=== PATIENT | female | born 1945 | race Caucasian/White ===

== ENCOUNTER → 2018-07-04 12:06 | Outpatient (CLI) | payer OTHER, SELFPAY ==
[2018-07-04 15:17] LABS: Cancer Antigen 125 22 U/mL (0-35)
== END ==
PROVIDERS: Family Provider Physician Assistant; PCP Physician Assistant; Visit Provider Specialist
DX: R10.2 Pelvic and perineal pain (principal)
CPT/HCPCS: 36415; 86304

== ENCOUNTER → 2019-01-08 12:00 | Outpatient (CLI) | payer OTHER, SELFPAY ==
--- NOTE | 2019-01-08 | DI.MG.S_ITS ---
BILATERAL DIGITAL SCREENING MAMMOGRAM 3D/2D WITH CAD: 01/08/2019 CLINICAL: Routine screening. Comparison is made to exams dated: 04/03/2017 mammogram, 12/14/2014 mammogram, and 09/25/2012 mammogram - [facility]. The tissue of both breasts is heterogeneously dense. This may lower the sensitivity of mammography. Current study was also evaluated with a Computer Aided Detection (CAD) system. There is an asymmetry in the left breast anterior depth central to the nipple seen on the mediolateral oblique view only. There is possible architectural distortion associated with the asymmetry. No other significant masses, calcifications, or other findings are seen in either breast. IMPRESSION: INCOMPLETE: NEEDS ADDITIONAL IMAGING EVALUATION The asymmetry in the left breast is indeterminate. Additional views with possible ultrasound are recommended. This exam was interpreted at Station ID: [id number]. NOTE: For mammograms, a report in lay terms will be sent to the patient. Approximately 15% of breast malignancies will not be visualized mammographically. In the management of a palpable breast mass, a negative mammogram must not discourage biopsy of a clinically suspicious lesion. Electronically Signed By: Gilberto Padilla M.D. ecl/:01/09/2019 12:54:03 copy to: KENDALL CHANG letter sent: Additional Imaging Needed ACR BI-RADS Category 0: Incomplete 3340F
== END ==
PROVIDERS: PCP Internal Medicine; Visit Provider Internal Medicine
DX: Z12.31 Encounter for screening mammogram for malignant neoplasm of breast (principal); M81.0 Age-related osteoporosis without current pathological fracture; Z78.0 Asymptomatic menopausal state; E07.9 Disorder of thyroid, unspecified; Z82.62 Family history of osteoporosis; Z87.891 Personal history of nicotine dependence
CPT/HCPCS: 77063; 77067; 77080

== ENCOUNTER → 2019-02-16 10:11 | Outpatient (CLI) | payer OTHER, SELFPAY ==
--- NOTE | 2019-02-16 | DI.MG.S_ITS ---
UNILATERAL LEFT DIGITAL DIAGNOSTIC MAMMOGRAM 3D/2D WITH ADDITIONAL VIEWS: 02/16/2019 CLINICAL: Additional evaluation requested from prior study. Comparison is made to exams dated: 01/08/2019 mammogram, 04/03/2017 mammogram, and 12/14/2014 mammogram - [facility]. The tissue of left breast is heterogeneously dense. This may lower the sensitivity of mammography. The benign asymmetry in the left breast anterior depth central to the nipple seen on the mediolateral oblique view only is no longer seen. This is consistent with summation artifact. No other significant masses or calcifications are seen in the breast. IMPRESSION: The previously described asymmetry disperses with additional views and is consistent with summation artifact. There is no mammographic evidence of malignancy. A 1 year screening mammogram is recommended. This exam was interpreted at Station ID: [id number]. NOTE: For mammograms, a report in lay terms will be sent to the patient. Approximately 15% of breast malignancies will not be visualized mammographically. In the management of a palpable breast mass, a negative mammogram must not discourage biopsy of a clinically suspicious lesion. Electronically Signed By: Yan Barlow M.D. at/:02/16/2019 10:42:01 copy to: KENDALL CHANG letter sent: Normal Exam ACR BI-RADS Category 2: Benign Finding(s) 3342F
== END ==
PROVIDERS: PCP Internal Medicine; Visit Provider Internal Medicine
DX: R92.8 Other abnormal and inconclusive findings on diagnostic imaging of breast (principal)
CPT/HCPCS: 77065; G0279

== ENCOUNTER → 2019-02-24 13:22 | Outpatient (CLI) | payer OTHER, SELFPAY ==
[2019-02-24 14:14] LABS: BUN Creatinine Ratio 23.3 (6-22); Blood Urea Nitrogen 14 mg/dL (7-17); Estimated Glomerular Filt Rate > 60.0 mL/min (>60)
== END ==
PROVIDERS: PCP Internal Medicine; Visit Provider Internal Medicine
DX: M81.0 Age-related osteoporosis without current pathological fracture (principal)
CPT/HCPCS: 36415; 82565; 84520

== ENCOUNTER → 2019-05-08 07:04 | Outpatient (CLI) | payer OTHER, SELFPAY ==
--- NOTE | 2019-05-08 | DI.US.S_ITS ---
PROCEDURE: US RENAL COMPLETE INDICATIONS: FREQUENT UTI TECHNIQUE: Real-time scanning was performed of the kidneys and bladder, with image documentation. COMPARISON: [facility], US, RENAL COMPLETE, 08/17/2010, 10:38. FINDINGS: Kidneys: Kidneys are normal in size. Right kidney measures 9.3 cm long; left kidney measures 9.8 cm long. Right renal cortical thickness is 1.2 cm; left renal cortical thickness is 1.5 cm. Renal cortical echotexture is normal. No hydronephrosis or nephrolithiasis. No suspicious solid mass lesions. Bladder: Pre-void bladder volume is 278 mL. Post-void residual is 122 mL. Pre-void images demonstrate no intraluminal masses or stones. On pre-void images, bilateral ureteral jets are noted with color Doppler interrogation. (Of note, ureteral jets may not be detectable in up to 25% of cases due to insufficient differences in specific gravity between ureteral and bladder urine). Miscellaneous: No free pelvic fluid. IMPRESSION: Normal kidneys. Dictated by: Magdaleno GARCIA Interpreted: Greg Hernández MD on 05/08/2019 at 8:36 Approved by: Greg Hernández M.D. on 05/08/2019 at 16:50
== END ==
PROVIDERS: PCP Internal Medicine; Visit Provider Urology
DX: N39.0 Urinary tract infection, site not specified (principal)
CPT/HCPCS: 76770

== ENCOUNTER → 2019-07-31 14:27 | Outpatient (CLI) | payer OTHER, SELFPAY ==
--- NOTE | 2019-07-31 | DI.RAD.S_ITS ---
PROCEDURE: XR HIP W PEL IF DONE LT 2V INDICATIONS: left hip pain TECHNIQUE: AP pelvis with lateral view(s) of the left hip(s). COMPARISON: [facility], , PELVIS 1 OR 2 VIEWS, 03/16/2011, 11:20. FINDINGS: Bones: No fractures or dislocations. Pelvic ring appears intact. No suspicious bony lesions. Mild symmetric hip and sacroiliac joint degeneration bilaterally. Soft tissues: The visualized bowel gas pattern is normal. No suspicious soft tissue calcifications. 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 Dictated by: Woody Ochoa M.D. on 07/31/2019 at 22:01 Approved by: Woody Ochoa M.D. on 07/31/2019 at 22:02
== END ==
PROVIDERS: PCP Internal Medicine; Referring Provider Internal Medicine; Visit Provider Internal Medicine
DX: M25.552 Pain in left hip (principal); M16.0 Bilateral primary osteoarthritis of hip; M47.898 Other spondylosis, sacral and sacrococcygeal region
CPT/HCPCS: 73502

== ENCOUNTER 2019-08-08 11:54 | Emergency (ER) | payer OTHER, SELFPAY ==
[2019-08-08 12:00] VITALS: BP 146/73; PULSE 77; RESP 16; TEMP 37; O2SAT 99; BMI 25.0
--- NOTE | 2019-08-08 12:09 | DI.RAD.S_ITS ---
PROCEDURE: XR FOOT LT MIN 3V INDICATIONS: pain after stepping off curb TECHNIQUE: 3 views of the foot were acquired. COMPARISON: [facility], , FOOT 3V RIGHT, 01/23/2010, 12:52. FINDINGS: Bones: There is malalignment of the 1st tarsometatarsal joint with widening of the interval between the medial cuneiform and base of the 2nd metatarsal. No discrete fracture is visualized. There is moderate to severe degeneration at the 1st metatarsophalangeal joint. No suspicious bony lesions. Soft tissues: No tibiotalar joint effusion. Achilles tendon appears intact. IMPRESSION: 1. Malalignment at the 1st tarsometatarsal joint as described suggestive of a Lisfranc ligament injury. 2. Moderate to severe degeneration of the 1st metatarsophalangeal joint. Dictated by: Walter Hawkins M.D. on 08/08/2019 at 11:58 Approved by: Walter Hawkins M.D. on 08/08/2019 at 12:09
[2019-08-08] MEDS: LIDOCAINE PATCH 1 EACH ADH..PATCH TOP (12:16)
--- NOTE | 2019-08-08 12:26 | ED.BACK ---
HPI - Back Pain/Injury <Claudia Avelar, CUSTOMER SUPPORT REPRESENTATIVE-BC - Last Filed: 08/08/19 14:24> General Chief Complaint: Back Pain/Injury Stated Complaint: sciatica [id number], foot pain, suspected fracture Time Seen by Provider: 08/08/19 11:57 Source: patient and family Mode of arrival: Ambulatory Limitations: no limitations History of Present Illness HPI Narrative: The patient is a 74-year-old female former smoker with history of sciatica who presents for chief complaint of sciatica for a week as well as foot pain. She presents with her . She states that she has seen her primary care provider twice in the past week, once for sciatica and once for UTI. She has been started on a steroid taper, states that her sciatica is not improving and is in fact worsening. She states on Saturday she messaged her PCP PE, Dr. Love and he replied that he would make a referral for her. She wonders if her sciatica is worsening as she remembers twisting her foot and has foot pain on the top of her foot. She states that she twisted her foot falling off a curb, is not sure exactly when but states that it was at least 6 weeks ago. She wonders if this is changing her gait, sitting offer sciatic. She denies any incontinence of bowel, incontinence of bladder saddle anesthesia. She has tried Tylenol at home. Patient initially states that she does not taken anything else for pain other than the prednisone, but chart review illustrate that she takes meloxicam, gabapentin, tramadol. Related Data Home Medications Medication Instructions Recorded Confirmed atorvastatin 10 mg tablet 10 mg PO DAILY 07/04/18 07/04/18 gabapentin 300 mg capsule 300 mg PO DAILY 07/04/18 07/04/18 levothyroxine 75 mcg capsule 75 mcg PO DAILY 07/04/18 07/04/18 meloxicam submicronized 10 mg 50 mg PO DAILY cap 07/04/18 07/04/18 capsule tramadol 100 mg capsule 100 mg PO DAILY 07/04/18 07/04/18 24h,extended release(25-75) zolpidem 5 mg tablet 5 mg PO BEDTIME PRN 07/04/18 07/04/18 Previous Rx's Medication Instructions Recorded gabapentin 100 mg PO DAILY #10 cap 08/08/19 lidocaine 1 patch TOP DAILY PRN #15 each 08/08/19 prednisone 40 mg PO DAILY 5 Days #10 tab 08/08/19 Allergies Allergy/AdvReac Type Severity Reaction Status Date / Time codeine [CODEINE] Allergy Unknown Unverified 07/04/18 11:38 Penicillins [PENICILLINS] Allergy Unknown Unverified 07/04/18 11:38 Review of Systems <KENDRA Deshpande - Last Filed: 08/08/19 14:24> Review of Systems Narrative: GENERAL: Denies chills, fatigue, malaise, fever, sweats. HEENT: Denies sinus pain, ear pain, sore throat, difficulty swallowing, dizziness. RESPIRATORY: Denies dyspnea, cough, wheezing, hemoptysis, sputum. CARDIOVASCULAR: Denies chest pain, palpitations, orthopnea, edema, GASTROINTESTINAL: Denies nausea, vomiting, abdominal pain, diarrhea, constipation, melena. : Denies dysuria, frequency, incontinence, hematuria, urinary retention. MUSCULOSKELETAL: See HPI SKIN: Denies rash, skin lesions, or other NEUROLOGIC: See HPI PSYCHIATRIC: No concerning psychosocial issues. 12 point review of systems is negative except for those stated above Patient History <KENDRA Deshpande - Last Filed: 08/08/19 14:24> Social History Smoking Status: Former smoker Smoking Status: Former smoker Substance Use Type: does not use Exam <KENDRA Deshpande - Last Filed: 08/08/19 14:24> Narrative Exam Narrative: GENERAL: This is a well-nourished, well-developed patient, in no acute distress HEAD: Atraumatic. Normocephalic. No temporal or scalp tenderness. EYES: Pupils equal round and reactive. Extraocular motions intact. No scleral icterus. No injection or drainage. ENT: Nose without bleeding, purulent drainage or septal hematoma. Throat without erythema, tonsillar hypertrophy or exudate. Uvula midline. Airway patent. NECK: Trachea midline. No JVD or lymphadenopathy. Supple, nontender, no meningeal signs. CARDIOVASCULAR: Regular rate and rhythm RESPIRATORY: No cough. No increased respiratory effort. No accessory muscle use. EXTREMITIES: General pain to palpation over navicular left foot. Capillary refill less than 2 seconds all toes. Positive pedal pulses left foot. BACK: Nontender without deformity or crepitance. No flank tenderness. Pain to palpation right gluteus area. Stable gait. No gross cranial nerve deficit. NEURO: AOx3. SKIN: No rash or erythema on visible skin Initial Vital Signs Initial Vital Signs: Vital Signs Temperature 98.6 F 08/08/19 12:00 Pulse Rate 77 08/08/19 12:00 Respiratory Rate 16 08/08/19 12:00 Blood Pressure 146/73 H 08/08/19 12:00 Pulse Oximetry 99 08/08/19 12:00 <Amanuel iHnes DO - Last Filed: 08/08/19 18:54> Initial Vital Signs Initial Vital Signs: Vital Signs Temperature 98.6 F 08/08/19 12:00 Pulse Rate 77 08/08/19 12:00 Respiratory Rate 16 08/08/19 12:00 Blood Pressure 146/73 H 08/08/19 12:00 Pulse Oximetry 99 08/08/19 12:00 Procedures <KENDRA Deshpande - Last Filed: 08/08/19 14:24> Orthopedic Splinting/Casting Injury #1: Side: left Lower Extremity Injury Location: foot Lower Extremity Immobilizer: post-op shoe Post splinting neuro exam: intact Post splinting vascular exam: intact Placed by: Nursing Scores <KENDRA Deshpande - Last Filed: 08/08/19 14:24> GCS Mesfin coma scale eye opening: Spontaneous Mesfin coma scale verbal response: Orientated Mesfin coma scale motor response: Obey commands Mesfin coma scale total score: 15 Course <KENDAR Deshpande - Last Filed: 08/08/19 14:24> Orders Ordered: ED Orders 08/08/19 12:09 XR foot LT min 3V Stat Discontinued Medications Lidocaine (Lidoderm) 1 each TOP NOW ONE Stop: 08/08/19 12:11 Last Admin: 08/08/19 12:16 Dose: 1 each Documented by: JOSE ROBERTO Vital Signs Vital signs: Vital Signs - 8 hr 08/08/19 12:00 08/08/19 14:29 Temperature 98.6 F Pulse Rate 77 66 Respiratory Rate 16 16 Blood Pressure 146/73 H Pulse Oximetry 99 98 <Amanuel Hines DO - Last Filed: 02/29/20 18:54> Orders Ordered: ED Orders 08/08/19 12:09 XR foot LT min 3V Stat Discontinued Medications Lidocaine (Lidoderm) 1 each TOP NOW ONE Stop: 08/08/19 12:11 Last Admin: 08/08/19 12:16 Dose: 1 each Documented by: JOSE ROBERTO Vital Signs Vital signs: Vital Signs - 8 hr 08/08/19 12:00 08/08/19 14:29 Temperature 98.6 F Pulse Rate 77 66 Respiratory Rate 16 16 Blood Pressure 146/73 H Pulse Oximetry 99 98 MDM - Back Pain/Injury <KENDRA Deshpande - Last Filed: 08/08/19 14:24> Imaging Data Extremity x-ray #1: Radiologist's Impression: [address] [address] XRay Report Signed Patient: Chey Bradford ZMR#: [id number] : 5Acct:[id number] Age/Sex: 74 / FDate of Service: 08/08/19 Loc: ED Accession Number: [id number] Procedure: XR foot LT min 3V Ordering Provider: Claudia Avelar PROCEDURE: XR FOOT LT MIN 3V INDICATIONS: pain after stepping off curb TECHNIQUE: 3 views of the foot were acquired. COMPARISON: [facility], , FOOT 3V RIGHT, 01/23/2010, 12:52. FINDINGS: Bones: There is malalignment of the 1st tarsometatarsal joint with widening of the interval between the medial cuneiform and base of the 2nd metatarsal. No discrete fracture is visualized. There is moderate to severe degeneration at the 1st metatarsophalangeal joint. No suspicious bony lesions. Soft tissues: No tibiotalar joint effusion. Achilles tendon appears intact. IMPRESSION: 1. Malalignment at the 1st tarsometatarsal joint as described suggestive of a Lisfranc ligament injury. 2. Moderate to severe degeneration of the 1st metatarsophalangeal joint. Dictated by: Walter Hawkins M.D. on 08/08/2019 at 11:58 Approved by: Walter Hawkins M.D. on 08/08/2019 at 12:09 [facility] Narrative Medical decision making narrative: The patient is a 74-year-old female who presents with a chief complaint of foot pain and worsening sciatica. Foot x-ray shows concern of a Lisfranc ligament injury. She was placed in a postoperative shoe as per Dr. Waldrop recommendations. She was neurovascularly intact throughout her stay in the emergency department. Alteration in gait due to her foot injury may have exacerbated her sciatica. I discussed increasing her gabapentin dosing, adding 100 mg in the morning to her nightly dose of 300. Also a steroid burst and lidocaine patches. Discussed at length the importance of following up with primary care provider as well as come back to the emergency department for any acute concerns. She remains without red flag symptoms of incontinence of bowel, incontinence of bladder saddle anesthesia. I discussed that these are strict return precautions the emergency department. She is placed in a postoperative shoe. Discussed at length the importance of following up for primary care provider and also gave contact information to Orthopedics. Patient has been of no questions or concerns upon discharge and state understanding of return precautions as well as follow-up care. Discharge Plan Departure Patient Disposition: Home Clinical Impression: Acute pain of left foot Chronic low back pain with sciatica Qualifiers: Back pain laterality: right Sciatica laterality: sciatica of right side Qualified Code(s): M54.41 - Lumbago with sciatica, right side Discharge Date/Time: 08/08/19 14:30 Instructions: DI for Sciatica, DI for Foot Pain Activity Restrictions/Additional Instructions: As I discussed, your x-ray shows no acute fracture. However it is suspicious of a Lisfranc ligament injury as well as some arthritis.. It is important that you follow up with primary care provider. I have also given you contact information to [facility]. Please use rest ice compression elevation. Regarding your sciatica, I sent 2 prescriptions to [facility]. One is a steroid burst. The other is a 2nd dose of gabapentin. Please take 100 mg in the morning in addition to your nightly dose. Please follow-up with primary care provider next few days. Please come back to emergency department for any acute concerns such as incontinence bowel, incontinence of bladder or numbness in her groin Prescriptions: New gabapentin 100 mg capsule 100 mg PO DAILY Qty: 10 RF: 0 prednisone 20 mg tablet 40 mg PO DAILY 5 Days Qty: 10 RF: 0 lidocaine 5 % adhesive patch,medicated 1 patch TOP DAILY PRN (Reason: pain) Qty: 15 RF: 0 No Action gabapentin 300 mg capsule 300 mg PO DAILY RF: 0 zolpidem [Ambien] 5 mg tablet 5 mg PO BEDTIME PRNRF: 0 atorvastatin 10 mg tablet 10 mg PO DAILY RF: 0 meloxicam submicronized 10 mg capsule 50 mg PO DAILY RF: 0 levothyroxine 75 mcg capsule 75 mcg PO DAILY RF: 0 tramadol 100 mg capsule,ER biphase 24 hr 25-75 100 mg PO DAILY RF: 0 Referrals: Og Love MD [Primary Care Provider] -
[2019-08-08 14:29] VITALS: PULSE 66; RESP 16; O2SAT 98
== END 2019-08-08 14:30 | disposition home or self-care (01) ==
PROVIDERS: Emergency Provider Nurse Practitioner Family; PCP Internal Medicine
DX: M79.672 Pain in left foot (principal); M54.41 Lumbago with sciatica, right side
CPT/HCPCS: 73630; 99283

== ENCOUNTER → 2019-12-07 09:06 | Outpatient (CLI) | payer OTHER, SELFPAY ==
[2019-12-07 11:41] LABS: Aspartate Aminotransferase 21 IU/L (14-36); BUN Creatinine Ratio 18.5 (6-22); Blood Urea Nitrogen 12 mg/dL (7-17); Calcium 9.7 mg/dL (8.4-10.2); Carbon Dioxide 29 mmol/L (22-32); Chloride 102 mmol/L (98-107); Cholesterol 173 mg/dL (140-199); Estimated Glomerular Filt Rate > 60.0 mL/min (>60); Glucose 87 mg/dL (80-110); HDL Cholesterol 62 mg/dL (40-60); HEMOLYSIS < 15 (0-50); LDL Cholesterol Calculated 100 mg/dL (<100); Potassium 4.4 mmol/L (3.4-5.1); Sodium 138 mmol/L (137-145); Triglycerides 57 mg/dL (35-150)
[2019-12-07 12:08] LABS: TSH w/ Reflex to FT4 0.73 uIU/mL (0.47-4.68)
== END ==
PROVIDERS: PCP Internal Medicine; Referring Provider Internal Medicine; Visit Provider Internal Medicine
DX: M81.0 Age-related osteoporosis without current pathological fracture (principal)
CPT/HCPCS: 36415; 80048; 80061; 84443; 84450

== ENCOUNTER → 2020-02-01 15:47 | Outpatient (CLI) | payer OTHER, SELFPAY ==
[2020-02-01 16:46] LABS: Appearance Urine UA SL CLOUDY; Bilirubin Urine UA NEGATIVE (NEGATIVE); Color Urine UA YELLOW; Glucose Urine UA NEGATIVE (Negative); Ketones Urine UA NEGATIVE (NEGATIVE); Leukocyte Esterase Urine UA 1+ (NEGATIVE); Nitrite Urine UA POSITIVE (Negative); Occult Blood Urine UA TRACE-INTACT (Negative); Protein Urine UA NEGATIVE (Negative); Specific Gravity Urine UA <=1.005 (1.000-1.035); Urobilinogen Urine UA 0.2 E.U./dL (0.2)
[2020-02-01 17:13] LABS: BUN Creatinine Ratio 26.2 (6-22); Blood Urea Nitrogen 16 mg/dL (7-17); Calcium 9.1 mg/dL (8.4-10.2); Carbon Dioxide 28 mmol/L (22-32); Chloride 98 mmol/L (98-107); Estimated Glomerular Filt Rate > 60.0 mL/min (>60); Glucose 92 mg/dL (80-110); HEMOLYSIS < 15 (0-50); Potassium 4.5 mmol/L (3.4-5.1); Sodium 132 mmol/L (137-145)
[2020-02-01 17:14] LABS: Bacteria Urine Many (>30); Culture Indicated Urine Specimen Cultured; RBC Urine 0-1/HPF (0-5/HPF); Squamous Epithelial Cell Urine 1-5 /HPF (0-5/HPF); WBC Urine 10-30/HPF (0-5/HPF)
== END ==
PROVIDERS: PCP Internal Medicine; Referring Provider Internal Medicine; Visit Provider Internal Medicine
DX: R39.9 Unspecified symptoms and signs involving the genitourinary system (principal); M81.0 Age-related osteoporosis without current pathological fracture
CPT/HCPCS: 36415; 80048; 81001; 87077; 87086; 87186

== ENCOUNTER → 2021-04-17 10:43 | Outpatient (CLI) | payer OTHER, SELFPAY ==
--- NOTE | 2021-04-17 10:44 | DI.CT.S_ITS ---
PROCEDURE: CT LUMBAR SPINE WO CON INDICATIONS: Low back pain, unspecified TECHNIQUE: Noncontrast 3 mm thick sections acquired from the T12 level to the sacrum. Sagittal and coronal reformats were constructed. For radiation dose reduction, the following was used: automated exposure control. COMPARISON: [facility], MR, L-SPINE WITHOUT CONTRAST, 09/27/2014, 7:14. [facility], MR, L-SPINE WITHOUT CONTRAST, 07/24/2012, 7:18. [facility], CR, XR LUMBAR SPINE WITH FLEXION EXTENSION 5 VIEWS, 12/03/2019, 10:46. [facility], MR, MR LUMBAR SPINE WITHOUT CONTRAST, 08/22/2019, 10:50. [facility], CT, ABDOMEN/PELVIS WITH CONTRAST, 03/25/2017, 13:02. FINDINGS: Image quality: There is artifact associated with the metallic hardware. Bones: There is normal bony alignment. No acute vertebral body compression fractures. No suspicious lytic or blastic bony lesions. No pars defects. Postoperative changes are seen, with bilateral pedicle screws at the L3 through L5 levels. The screws appear well placed. Disc spacers are seen at L3-L4 and L4-L5. Vertical fixation rods are seen. No findings of hardware failure or hardware loosening are seen. T12-L1: Normal. L1-L2: Normal. L2-L3: The disc height is well preserved. Mild generalized disc bulge is seen. These degenerative changes appear slightly progressed compared to the prior MRI. L3-L4: Moderate generalized disc bulge is seen. Moderate bilateral neural foraminal narrowing is seen. Moderate central canal narrowing is seen. The degrees of narrowing are overall improved compared to the preoperative MRI. L4-L5: Moderate generalized disc bulge is seen. Moderate facet joint hypertrophy is seen. There is mild left-sided and moderate right-sided neural foraminal narrowing seen. No significant central canal narrowing is seen. This level is improved compared to the preoperative MRI. L5-S1: The disc height is well preserved. Mild facet joint hypertrophy is seen. No significant neural foraminal or central canal narrowing can be seen. Soft tissues: No retroperitoneal masses or hematomas. Visualized aorta is normal in caliber. Atherosclerotic calcification is noted. IMPRESSION: L3 through L5 postoperative hardware, without complication seen. At L3-L4 and L4-L5, the degrees of narrowing are improved compared to the preoperative MRI. Slightly progressed degenerative change noted at L2-L3. Dictated by: Jair Forde M.D. on 04/19/2021 at 15:03 Approved by: Jair Forde M.D. on 04/19/2021 at 15:08
== END ==
PROVIDERS: PCP Internal Medicine; Referring Provider Internal Medicine; Visit Provider Internal Medicine
DX: M54.50 Low back pain, unspecified (principal); M48.061 Spinal stenosis, lumbar region without neurogenic claudication; Z98.1 Arthrodesis status
CPT/HCPCS: 72131

== ENCOUNTER → 2021-07-13 11:30 | Outpatient (CLI) | payer OTHER, SELFPAY ==
--- NOTE | 2021-07-13 | DI.CT.S_ITS ---
PROCEDURE: CT ABDOMEN PELVIS W CON INDICATIONS: LEFT LOWER QUADRANT ABDOMINAL PAIN TECHNIQUE: After the administration of oral and IV contrast, axial sections were acquired from the lung bases to the pubic symphysis. Coronal and sagittal reformats were performed. For radiation dose reduction, the following was used: automated exposure control, adjustment of mA and/or kV according to patient size. COMPARISON: [facility], CT, CT LUMBAR SPINE WO CON, 04/17/2021, 12:00. [facility], CT, ABDOMEN/PELVIS WITH CONTRAST, 03/25/2017, 13:02. FINDINGS: Image quality: Excellent. Lung bases: Unremarkable. Heart: No significant findings. ABDOMEN: Liver: Multiple benign liver cysts. A larger cyst at the inferior right lobe of the liver measures 8.7 cm. Gallbladder: Decompressed. Biliary ducts: Unremarkable. Pancreas: Unremarkable. Spleen: Unremarkable. Adrenal Glands: Unremarkable. Kidneys and Ureters: No hydronephrosis. Stomach and Bowel: Probably a few colonic diverticuli. No diverticulitis. There is prominent stool in the colon. The appendix is not identified. No small bowel obstruction. Peritoneum: No abnormal intraperitoneal fluid. No free air. Ventral Wall: No hernia. Abdominal Nodes: No retroperitoneal or mesenteric adenopathy by size criteria. Vessels: Aorta and inferior vena cava are normal in size. PELVIS: Pelvic Organs: Uterus is unremarkable. Bladder: No bladder stones. Pelvic Nodes: No enlarged lymph nodes. Miscellaneous: No inguinal hernias are seen. Bones: L3-L5 pedicle screw fixation with intervertebral body spacers is unchanged in appearance. No compression fracture. IMPRESSION: 1. No acute inflammatory process is identified. No free fluid. No small bowel obstruction. 2. There is prominent stool in the colon which raises the possibility of constipation. 3. No hydronephrosis. Dictated by: Reilly Little M.D. on 07/13/2021 at 14:14 Approved by: Reilly Little M.D. on 07/13/2021 at 14:21
[2021-07-13 12:00] LABS: Estimated Glomerular Filt Rate > 60.0 mL/min (>60)
== END ==
PROVIDERS: PCP Internal Medicine; Referring Provider Student in an Organized Health Care Education/Training Program; Visit Provider Student in an Organized Health Care Education/Training Program
DX: R10.32 Left lower quadrant pain (principal)
CPT/HCPCS: 36415; 74177; 82565; Q9967

== ENCOUNTER → 2022-01-24 12:06 | Outpatient (CLI) | payer OTHER, SELFPAY | PROVIDERS: PCP Student in an Organized Health Care Education/Training Program; Referring Provider Student in an Organized Health Care Education/Training Program; Visit Provider Student in an Organized Health Care Education/Training Program | DX: Z13.820 Encounter for screening for osteoporosis (principal); Z78.0 Asymptomatic menopausal state; M85.89 Other specified disorders of bone density and structure, multiple sites; Z92.23 Personal history of estrogen therapy | CPT/HCPCS: 77080 ==

== ENCOUNTER → 2022-08-29 11:15 | Outpatient (CLI) | payer MEDICARE, SELFPAY ==
--- NOTE | 2022-08-29 11:16 | DI.RAD.S_ITS ---
PROCEDURE: XR RIBS LT MIN 3V W CXR1V INDICATIONS: Rib pain TECHNIQUE: To views of the left ribs were acquired, along with a single view chest. COMPARISON: None. FINDINGS: Surgical changes and devices: None. Bones and chest wall: No fractures or dislocations. No suspicious bony lesions. Overlying soft tissues appear unremarkable. Lungs and pleura: No pleural effusions or pneumothorax. Lungs appear clear. Mediastinum: Mediastinal contours appear normal. Heart size is normal. IMPRESSION: No definite displaced left rib fracture. No acute cardiopulmonary pathology. Dictated by: Eliceo Clarke M.D. on 08/29/2022 at 11:38 Approved by: Eliceo Clarke M.D. on 08/29/2022 at 11:45
== END ==
PROVIDERS: PCP Student in an Organized Health Care Education/Training Program; Referring Provider Nurse Practitioner Family; Visit Provider Nurse Practitioner Family
DX: R07.81 Pleurodynia (principal)
CPT/HCPCS: 71101

== ENCOUNTER → 2022-10-31 08:44 | Outpatient (CLI) | payer MEDICARE, SELFPAY ==
--- NOTE | 2022-10-31 | DI.MRI.S_ITS ---
PROCEDURE: MR LUMBAR SPINE WO CON INDICATIONS: Arthrodesis status TECHNIQUE: Noncontrast sagittal T1 spin echo and T2 fast echo, sagittal STIR, and T2 fast spin echo through the lumbar spine. In cases with scoliosis, additional coronal T2 fast spin echo may be performed. COMPARISON: [facility], CT, CT LUMBAR SPINE WO CON, 04/17/2021, 12:00. [facility], CR, XR LUMBAR SPINE WITH FLEXION EXTENSION 5 VIEWS, 10/16/2022, 14:13. [facility], MR, MR LUMBAR SPINE WITHOUT CONTRAST, 08/22/2019, 10:50. [facility], MR, L-SPINE WITHOUT CONTRAST, 09/27/2014, 7:14. FINDINGS: Image quality: Excellent. Alignment and Curvature: Posterior lateral danita and pedicle screw fixation and interbody disc spacers at L3-L4 through L4-L5. Trace anterolisthesis of L3 on L4. Bone Marrow: Marrow is of normal overall signal. No acute vertebral body compression fractures. Spinal Cord: Conus medullaris terminates at the L1-L2 level. Visualized cord demonstrates normal signal and size. Paraspinous Soft Tissues: No paravertebral masses. T12-L1: Normal appearance. L1-L2: Normal appearance. L2-L3: Facet hypertrophy. Minimal disc bulge. No canal stenosis or foraminal stenosis. L3-L4: Posterior lateral danita and pedicle screw fixation and partial left hemilaminectomy and left facetectomy. Mild canal stenosis. No significant foraminal stenosis. L4-L5: Partial posterior decompression posterior lateral danita and pedicle screw fixation. No canal stenosis or foraminal stenosis. L5-S1: Mild disc bulge. Mild facet hypertrophy. No canal stenosis or foraminal stenosis. IMPRESSION: 1. Remote posterior lateral danita and pedicle screw fixation from L3 through L5. Remote decompression. 2. Above and below the surgical levels, there is no canal stenosis or foraminal stenosis. 3. Mild canal stenosis at L3-L4. Dictated by: Alex Kim M.D. on 10/31/2022 at 13:44 Approved by: Alex Kim M.D. on 10/31/2022 at 13:52
== END ==
PROVIDERS: PCP Student in an Organized Health Care Education/Training Program; Referring Provider Orthopaedic Surgery; Visit Provider Orthopaedic Surgery
DX: M54.50 Low back pain, unspecified (principal); M48.061 Spinal stenosis, lumbar region without neurogenic claudication; Z98.1 Arthrodesis status
CPT/HCPCS: 72148

== ENCOUNTER → 2023-04-17 13:11 | Outpatient (CLI) | payer MEDICARE, SELFPAY ==
--- NOTE | 2023-04-17 | DI.MG.S_ITS ---
BILATERAL DIGITAL SCREENING MAMMOGRAM 3D/2D WITH CAD: 04/17/2023 CLINICAL: Routine screening. Comparison is made to exam dated: 01/08/2019 mammogram - [facility]. Both breasts are heterogeneously dense, which may obscure small masses (category c / 51-75% glandular tissue). Current study was also evaluated with a Computer Aided Detection (CAD) system. No significant masses, calcifications, or other findings are seen in either breast. There has been no significant interval change. IMPRESSION: NEGATIVE There is no mammographic evidence of malignancy. A 1 year screening mammogram is recommended. Based on the Tyrer Cuzick model (a risk assessment model) the patient's lifetime risk is 5.3% and her 10 year risk is 0.0%. According to the ACR, ACS, and NCCN guidelines, an annual breast MRI exam along with mammogram is recommended if the patient's lifetime risk is 20% or greater. This exam was interpreted at Station ID: [id number]. NOTE: For mammograms, a report in lay terms will be sent to the patient. Approximately 15% of breast malignancies will not be visualized mammographically. In the management of a palpable breast mass, a negative mammogram must not discourage biopsy of a clinically suspicious lesion. Electronically Signed By: Reilly borrego/constanza:04/17/2023 16:26:18 copy to: KENDALL CHANG letter sent: Normal Exam ACR BI-RADS Category 1: Negative 3341F
== END ==
PROVIDERS: PCP Student in an Organized Health Care Education/Training Program; Referring Provider Student in an Organized Health Care Education/Training Program; Visit Provider Student in an Organized Health Care Education/Training Program
DX: Z12.31 Encounter for screening mammogram for malignant neoplasm of breast (principal)
CPT/HCPCS: 77063; 77067

== ENCOUNTER → 2023-07-19 11:29 | Outpatient (CLI) | payer MEDICARE, SELFPAY ==
--- NOTE | 2023-07-19 11:31 | DI.CT.S_ITS ---
PROCEDURE: CT ABDOMEN LIVER PROTOCOL INDICATIONS: Liver Cyst TECHNIQUE: 4 phase scanning was performed. Non-contrast 5 mm axial sections acquired from the diaphragm to the iliac crests. Following the administration of intravenous contrast, 5 mm thick arterial-phase, portal venous-phase, and 5-minute delayed phase images were acquired through the liver. 5 mm thick coronal and sagittal reformats were performed. For radiation dose reduction, the following was used: automated exposure control, adjustment of mA and/or kV according to patient size. COMPARISON: [facility], CT, CT ABDOMEN HEPATIC/ADRENAL PROTOCOL, 01/21/2023, 8:22. FINDINGS: Image quality: Mildly suboptimal evaluation due to metallic artifact of the lower lumbar spine.. Lower chest: Unremarkable. ABDOMEN: Liver: No solid mass. Normal enhancement. Patent portal vein. Similar hepatic cystic lesions and low attenuating lesions which are too small to characterize by CT. Gallbladder: No radiopaque gallstones or wall thickening. Biliary ducts: No biliary dilation. Pancreas: No ductal dilation. Spleen: Size is within normal limits. Stable hypoattenuation along the periphery of the spleen, presumably a chronic subcapsular collection. Adrenal Glands: No adrenal nodules. Kidneys and Ureters: No hydronephrosis. No solid mass. No complex renal cystic lesion which requires follow up. Stomach and Bowel: Normal colonic caliber, without significant wall thickening. Moderate colonic stool load. Peritoneum: No abnormal intraperitoneal fluid. No free air. Ventral Wall: No hernia. Abdominal Nodes: No retroperitoneal or mesenteric adenopathy by size criteria. Vessels: Aorta and inferior vena cava are normal in size. Bones: No aggressive osseous abnormality. Surgical fusion of the lower lumbar spine. IMPRESSION: Similar hepatic cystic lesions and low attenuating lesions which are too small to characterize by CT. Dictated by: Clark Ferrer M.D. on 07/19/2023 at 15:12 Approved by: Clark Ferrer M.D. on 07/19/2023 at 15:17
[2023-07-19 11:55] LABS: Estimated Glomerular Filt Rate > 60 mL/min (>60)
== END ==
LOC: CT 11:30
PROVIDERS: Radiology Diagnostic Radiology; PCP Student in an Organized Health Care Education/Training Program; Referring Provider Student in an Organized Health Care Education/Training Program; Visit Provider Student in an Organized Health Care Education/Training Program
DX: K76.89 Other specified diseases of liver (principal)
CPT/HCPCS: 36415; 74170; 82565; Q9967

== ENCOUNTER → 2023-07-25 12:12 | Outpatient (CLI) | payer MEDICARE, SELFPAY ==
--- NOTE | 2023-07-25 12:14 | DI.MRI.S_ITS ---
SCREENING BREAST MRI OF BOTH BREASTS: 07/25/2023 CLINICAL: Screening MRI. Comparison is made to exams dated: 04/17/2023 mammogram, 02/16/2019 mammogram, 04/03/2017 mammogram, and 01/08/2019 mammogram - [facility]. PROCEDURE: MR BREAST BI WO/W CON INDICATIONS: screening for malignant neoplasm of breast TECHNIQUE: The patient was placed prone in a dedicated breast imaging coil. Precontrast axial STIR and 3D FLASH without fat saturation sequences were obtained. Both before and after bolus injection of contrast, sequential 1-minute axial 3D FLASH with fat saturation sequences for 3 time points, with subtraction images and maximum intensity projections (MIP's) generated. Delayed sagittal FLASH images with fat saturation were also obtained. Computer-aided detection, including computer algorithm analysis of MRI image data for lesion detection and characterization, pharmacokinetic FINDINGS: Image quality: Xddk-zb-rzkwwtut motion artifact. The breasts are heterogeneously dense. There is mild background parenchymal enhancement. Right breast: No suspicious mass, focus, or non mass enhancement. Left breast: No suspicious mass, focus, or non mass enhancement. Miscellaneous: Partially visualized suspected liver cysts are present. Suspected dependent atelectasis. Borderline cardiomegaly. No significant findings in the anterior mediastinum. These are only partially visualized. No pathologic lymphadenopathy by size criteria or morphologic characteristics. IMPRESSION: NEGATIVE No suspicious findings in either breast. Recommend continued annual mammographic and supplemental MRI screening. BIRADS 1 COMMENT: The imaging literature indicates that a negative contrast breast MRI examination has a high sensitivity and a moderate specificity for detecting and excluding invasive carcinomas to a detection threshold of 3-5 mm; nonetheless, appropriate clinical and mammographic follow-up are recommended. MRI is not sensitive for detecting DCIS (ductal carcinoma in situ) and may not detect large invasive neoplasms that show only minimal enhancement such as mucinous carcinoma. If there are suspicious calcifications or clinically worrisome palpable masses, then biopsy should still be considered. Invasive neoplasms can be hidden by co-existent and benign enhancement caused by mastitis, hormone therapy effects, radiation therapy, , and recent biopsy or surgery. False positive examinations can occur in a number of circumstances, including breasts that have recently been subject to invasive procedures and those that contain atypical ductal hyperplasia, hormonally stimulated glandular tissue, fat necrosis, or radial scars. This exam was interpreted at Station ID: [id number]. Electronically Signed By: Ochoa juan/:07/25/2023 13:27:55 copy to: KENDALL CHANG letter sent: Normal Exam ACR BI-RADS Category 1: Negative [id number]
== END ==
PROVIDERS: PCP Student in an Organized Health Care Education/Training Program; Referring Provider Student in an Organized Health Care Education/Training Program; Visit Provider Student in an Organized Health Care Education/Training Program
DX: Z12.39 Encounter for other screening for malignant neoplasm of breast (principal)
CPT/HCPCS: 77049; A9579

== ENCOUNTER 2023-09-02 17:02 | Emergency (ER) | payer MEDICARE, SELFPAY ==
[2023-09-02 17:13] VITALS: BP 198/84; PULSE 64; RESP 16; TEMP 36.3; O2SAT 99; BMI 31.2
--- NOTE | 2023-09-02 17:23 | DI.RAD.S_ITS ---
PROCEDURE: XR CHEST 1V INDICATIONS: chest pain TECHNIQUE: One view of the chest was acquired. COMPARISON: [facility], CT, CT ANGIO HEAD AND NECK, 09/02/2023, 17:47. [facility], CT, CT HEAD/BRAIN WO CON, 09/02/2023, 17:26. [facility], CR, CHEST 1 VIEW, 12/23/2014, 10:22. FINDINGS: Surgical changes and devices: None. Lungs and pleura: An incomplete inspiratory result is noted, causing a crowded appearance to the lung markings. No focal infiltrates are seen. No pneumothorax or significant pleural effusions are seen. Mediastinum: The cardiac contours are within normal limits. The aorta demonstrates calcification and tortuosity. Bones and chest wall: No suspicious bony lesions. Age-appropriate bony degenerative changes are seen. Overlying soft tissues appear unremarkable. IMPRESSION: Low lung volumes, without an acute abnormality seen by plain film. Dictated by: Jair Forde M.D. on 09/02/2023 at 17:42 Approved by: Jair Forde M.D. on 09/02/2023 at 17:43
--- NOTE | 2023-09-02 17:23 | DI.CT.S_ITS ---
PROCEDURE: CT HEAD/BRAIN WO CON INDICATIONS: headache, nausea/vomiting, dizzy TECHNIQUE: Noncontrast 4.5 mm thick angled axial sections acquired from the foramen magnum to the vertex, with coronal and sagittal reformats. For radiation dose reduction, the following was used: automated exposure control, adjustment of mA and/or kV according to patient size. COMPARISON: [facility], CT, CT ANGIO HEAD AND NECK, 09/02/2023, 17:47. [facility], CR, XR CHEST 1V, 09/02/2023, 17:23. [facility], CT, HEAD WITHOUT CONTRAST, 12/23/2014, 10:31. FINDINGS: Image quality: Diagnostic. CSF spaces: Basal cisterns are patent. No extra-axial fluid collections. The ventricles are symmetric in size and shape. Brain: No intracranial bleeds or masses. There is cerebral volume loss for age, with resultant ventricular and sulcal prominence. There are periventricular and deep white matter chronic small vessel ischemic changes. There is intracranial internal carotid artery atherosclerosis. Skull and face: Calvarium and visualized facial bones appear intact, without suspicious lesions. Sinuses: Visualized sinuses and mastoids are clear. IMPRESSION: Noncontrast head CT within normal limits for age, similar to the 2015 prior. Dictated by: Jair Forde M.D. on 09/02/2023 at 17:44 Approved by: Jair Forde M.D. on 09/02/2023 at 17:44
[2023-09-02 17:31] VITALS: PULSE 66; RESP 21; O2SAT 96
--- NOTE | 2023-09-02 17:32 | DI.CT.S_ITS ---
PROCEDURE: CT ANGIO HEAD AND NECK INDICATIONS: [place]/N/V dizzy TECHNIQUE: After the administration of intravenous contrast, 1 mm thick sections acquired from the aortic arch through the [place] of [place]. 3-dimensional ocenjuq-uwikolkzi-inhgalusou (MIP) and/or volume rendering reformats were acquired of the central intracranial vasculature and neck separately. For radiation dose reduction, the following was used: automated exposure control, adjustment of mA and/or kV according to patient size. COMPARISON: [facility], CR, XR CHEST 1V, 09/02/2023, 17:23. [facility], CT, CT HEAD/BRAIN WO CON, 09/02/2023, 17:26. FINDINGS: Image quality: There is streak artifact seen through the level of the shoulders. BRAIN: CSF spaces: Ventricles are normal in size and shape. Basal cisterns are patent. No extra-axial fluid collections. Brain: No significant abnormality of the brain can be seen. Skull and face: Calvarium and facial bones appear intact, without suspicious lesions. Orbits appear normal. Sinuses: Sinuses and mastoids are clear. HEAD CT ANGIOGRAPHY: Anterior circulation: Intracranial internal carotid arteries are normal in size and flow. The flow within the paired anterior cerebral arteries is normal and symmetric. The flow within the middle cerebral arteries is normal and symmetric. The anterior communicating artery is seen. No aneurysms are seen. Posterior circulation: Visualized portions of the vertebral arteries demonstrate normal caliber, and join to form a normal appearing basilar artery. Flow within the posterior cerebral arteries is normal and symmetric. No aneurysms are seen. NECK CT ANGIOGRAPHY: Carotid system: The great vessels demonstrate a conventional anatomy as they arise from the aortic arch. The origins of the common carotid arteries appear patent. The common carotid arteries demonstrate normal caliber and courses. The bifurcation regions are both widely patent. The internal carotid arteries demonstrate normal calibers and courses. Posterior circulation: The origins of the vertebral arteries both appear widely patent. The more superior extracranial portions of both vertebral arteries also demonstrate normal courses and calibers. The left vertebral artery is dominant to the right. Soft tissues: Visualized neck soft tissues demonstrate no suspicious abnormalities. Bones: No suspicious bony lesions. Visualized cervical spine appears normally aligned. Focal degenerative change can be seen at the C5-C6 level. IMPRESSION: No significant intracranial arterial abnormality is seen. No significant abnormality is seen within the arteries of the neck. Additional findings: Focal C5-C6 degenerative change Any quantitative measurements of stenosis were performed using NASCET criteria. Dictated by: Jair Forde M.D. on 09/02/2023 at 17:45 Approved by: Jair Forde M.D. on 09/02/2023 at 17:46
[2023-09-02 17:49] LABS: Add Manual Diff / Slide Review NO; Basophils Absolute Auto 100 /uL (0-100); Basophils Percent Auto 0.8 % (0-2); Eosinophils Absolute Auto 0 /uL (0-450); Eosinophils Percent Auto 0.2 % (2-4); Hemoglobin 13.3 g/dL (12.0-16.0); Lymphocytes Absolute Auto 1000 /uL (1100-4500); Lymphocytes Percent Auto 13.7 % (25-40); Mean Corpuscular HGB Conc 34.2 % (30-36); Mean Corpuscular Hemoglobin 31.6 PG (26-34); Mean Corpuscular Volume 92.4 fL (80-100); Monocytes Absolute Auto 300 /uL (0-900); Monocytes Percent Auto 3.5 % (3-14); Neutrophils Absolute Auto 6300 /uL (1500-7000); Neutrophils Percent Auto 81.8 % (50-75); Platelet Count 260 X10^3/uL (150-400); Red Blood Cell Count 4.21 X10^6/uL (4.0-5.2); Red Cell Distribution Width 13.1 % (11.6-14.8); White Blood Cell Count 7.6 X10^3/uL (4.5-11.0)
[2023-09-02 17:55] LABS: Prothrombin Time 11.3 SECONDS (9.4-12.5)
[2023-09-02 17:58] LABS: PTT Partial Thromboplastin Tim 30 SECONDS (25.1-36.5)
[2023-09-02 18:14] LABS: Alanine Aminotransferase 18 IU/L (<35); Albumin 4.6 g/dL (3.5-5.0); Albumin Globulin Ratio 1.4 (1.0-2.8); Alkaline Phosphatase 45 U/L (38-126); Aspartate Aminotransferase 25 IU/L (14-36); Bilirubin Total 0.9 mg/dL (0.2-1.3); Blood Urea Nitrogen 13 mg/dL (7-17); Calcium 9.2 mg/dL (8.4-10.2); Carbon Dioxide 26 mmol/L (22-32); Chloride 104 mmol/L (98-107); Creatine Kinase 94 U/L (30-135); Estimated Glomerular Filt Rate > 60 mL/min (>60); Globulin 3.2 g/dL (1.7-4.1); Glucose 133 mg/dL (80-110); HEMOLYSIS 22 (0-50); Lipase 27 U/L (23-300); Potassium 3.6 mmol/L (3.4-5.1); Sodium 135 mmol/L (137-145); Total Protein 7.8 g/dL (6.3-8.2)
[2023-09-02 18:16] VITALS: PULSE 76; RESP 22; O2SAT 94
[2023-09-02] MEDS: SODIUM CHLORIDE 0.9% 1,000 ML 1000 ML IV (18:16)
[2023-09-02] MEDS: diazePAM 10 MG/2 ML SYRINGE 2 MG IV (18:16)
[2023-09-02 18:22] VITALS: BP 189/83; PULSE 68; RESP 22; O2SAT 98
[2023-09-02 18:25] LABS: Troponin I < 0.012 ng/mL (0.01-0.034)
--- NOTE | 2023-09-02 18:28 | PC.NURSE ---
Pt ambulated well to bathroom with [employer], pt states she feels less nauseas, but that she still feels dizzy with exertion.
[2023-09-02 18:30] VITALS: BP 178/83; PULSE 66; RESP 22; O2SAT 94
[2023-09-02 18:44] LABS: Bacteria Urine Many (>30); Culture Indicated Urine Cult Not Indicated; RBC Urine 0-1/HPF (0-5/HPF); Squamous Epithelial Cell Urine 5-10 /HPF (0-5/HPF); Urine Volume 10mL (spun); WBC Urine 0-1/HPF (0-5/HPF)
--- NOTE | 2023-09-02 19:16 | ED.HA ---
HPI - Headache General Chief Complaint: Headache Stated Complaint: Dizzy/headache/N/V Time Seen by Provider: 09/02/23 17:22 Source: patient and family Mode of arrival: Wheelchair Limitations: no limitations History of Present Illness HPI Narrative: Patient is a 78-year-old female here for evaluation of dizziness, headache and nausea and vomiting. States symptoms started last evening. They woke her from sleep. She states that it is positional and her symptoms are worse when she sits up and bends over. She denies any ringing in her ears. Has had some sinus congestion. No chest pain, palpitations, shortness of breath, numbness and tingling upper and lower extremities. She reports no weakness in her upper and lower extremities. Prior to my evaluation she received fluids and meclizine. Upon my evaluation she states her symptoms are much improved. Not completely resolved but tremendously better. She has not had symptoms like this in the past. Related Data Home Medications Medication Instructions Recorded Confirmed atorvastatin 10 mg tablet 10 mg PO DAILY 07/04/18 08/29/22 gabapentin 300 mg capsule 300 mg PO DAILY 07/04/18 08/29/22 levothyroxine 75 mcg capsule 75 mcg PO DAILY 07/04/18 08/29/22 meloxicam submicronized 10 mg 50 mg PO DAILY 07/04/18 08/29/22 capsule tramadol 100 mg capsule 100 mg PO DAILY 07/04/18 08/29/22 24h,extended release(25-75) zolpidem 5 mg tablet (Ambien) 5 mg PO BEDTIME PRN 07/04/18 08/29/22 Previous Rx's Medication Instructions Recorded gabapentin 100 mg capsule 100 mg PO DAILY #10 caps 08/08/19 lidocaine 5 % topical patch 1 patch topical DAILY PRN pain #15 08/08/19 ea meclizine 25 mg tablet 25 mg PO BID PRN dizziness #14 tabs 09/02/23 ondansetron 4 mg disintegrating 4 mg PO Q6H PRN nausea and 09/02/23 tablet vomiting #10 tabs Allergies Allergy/AdvReac Type Severity Reaction Status Date / Time Penicillins [PENICILLINS] Allergy Intermediate Verified 09/02/23 17:21 codeine [CODEINE] Allergy Mild Nausea Verified 09/02/23 17:21 Review of Systems Review of Systems ROS Unobtainable: All systems reviewed & are unremarkable except as noted in HPI and below Patient History Social History Smoking Status: Former smoker Smoking Status: Former smoker Substance Use Type: does not use Exam Initial Vital Signs Initial Vital Signs: Vital Signs Temperature 97.4 F L 09/02/23 17:13 Pulse Rate 64 09/02/23 17:13 Respiratory Rate 16 09/02/23 17:13 Blood Pressure 198/84 H 09/02/23 17:13 Pulse Oximetry 99 09/02/23 17:13 Oxygen Delivery Method Room Air 09/02/23 17:13 Const General: cooperative, comfortable and No ill appearing HENMT Head: normal to inspection and normocephalic Ears: TM's normal bilaterally Face and sinus: normal facial exam Mouth: oral mucosae normal Eyes Pupils: PERRL Resp Effort & Inspection: normal respiratory effort Cardio Rate: regular rate Skin General: no rashes or lesions noted Neuro General: patient alert, patient awake, patient oriented x3 and moves all extremities Cranial Nerves: CN's II-XI intact bilaterally Cognition: normal cognition Speech: speech normal Motor: muscle tone normal throughout Extrem General: normal to inspection and capillary refill normal Course Orders Ordered: ED Orders 09/02/23 17:23 CT head/brain wo con Stat XR chest 1V Stat 09/02/23 17:32 CT angio head and neck Stat 09/02/23 17:40 Complete Blood Count AUTO DIFF Stat Comprehensive Metabolic Panel Stat Lipase Stat Magnesium Stat PTT Partial Thromboplastin Ahsan Stat Prothrombin Time INR Stat Troponin & CK Cardiac Panel Stat 09/02/23 17:51 EKG-12 Lead Stat 09/02/23 18:04 Urine Microscopic Stat Discontinued Medications Diazepam (Diazepam 10 Mg/2 Ml Syringe) 2 mg IV NOW ONE Stop: 09/02/23 17:36 Last Admin: 09/02/23 18:16 Dose: 2 mg Documented By: ALONSO Sodium Chloride (Normal Saline 0.9%) 1,000 mls @ 1,000 mls/hr IV BOLUS ONE Stop: 09/02/23 18:34 Last Infusion: 09/02/23 19:32 Dose: Infused Documented By: Admin: 09/02/23 18:16 Dose: 1,000 mls/hr Documented By: ALONSO Vital Signs Vital signs: Vital Signs - 8 hr 09/02/23 17:13 09/02/23 17:31 09/02/23 18:16 Temperature 97.4 F L Pulse Rate 64 66 76 Respiratory Rate 16 21 22 Blood Pressure 198/84 H Pulse Oximetry 99 96 94 Oxygen Delivery Method Room Air 09/02/23 18:22 09/02/23 18:22 09/02/23 18:30 Temperature Pulse Rate 68 Respiratory Rate 22 Blood Pressure 189/83 H 178/83 H Pulse Oximetry 98 Oxygen Delivery Method 09/02/23 18:30 09/02/23 19:37 Temperature Pulse Rate 66 62 Respiratory Rate 22 17 Blood Pressure 189/83 H Pulse Oximetry 94 95 Oxygen Delivery Method Room Air MDM - Headache Lab Data Attestation: I reviewed the patient's lab results. 09/02/23 17:40 09/02/23 17:40 Labs: Lab Results 09/02/23 09/02/23 Range/Units 17:40 18:04 WBC 7.6 (4.5-11.0) X10^3/uL RBC 4.21 (4.0-5.2) X10^6/uL Hgb 13.3 (12.0-16.0) g/dL Hct 39.0 (36-46) % MCV 92.4 (80-100) fL MCH 31.6 (26-34) PG MCHC 34.2 (30-36) % RDW 13.1 (11.6-14.8) % Plt Count 260 (150-400) X10^3/uL Neut % (Auto) 81.8 H (50-75) % Lymph % (Auto) 13.7 L (25-40) % [place] % (Auto) 3.5 (3-14) % Eos % (Auto) 0.2 L (2-4) % Baso % (Auto) 0.8 (0-2) % Neut # (Auto) 6300 (2339-9769) /uL Lymph # (Auto) 1000 L (1727-4493) /uL [place] # (Auto) 300 (0-900) /uL Eos # (Auto) 0 (0-450) /uL Baso # (Auto) 100 (0-100) /uL PT 11.3 (9.4-12.5) SECONDS INR 1.0 (0.9-1.3) APTT 30 (25.1-36.5) SECONDS Sodium 135 L (137-145) mmol/L Potassium 3.6 (3.4-5.1) mmol/L Chloride 104 (98-107) mmol/L Carbon Dioxide 26 (22-32) mmol/L BUN 13 (7-17) mg/dL Creatinine 0.52 (0.52-1.04) mg/dL Estimated GFR > 60 (>60) mL/min BUN/Creatinine Ratio 25.0 H (6-22) Glucose 133 H (80-110) mg/dL Calcium 9.2 (8.4-10.2) mg/dL Magnesium 2.0 (1.6-2.3) mg/dL Total Bilirubin 0.9 (0.2-1.3) mg/dL AST 25 (14-36) IU/L ALT 18 (<35) IU/L Alkaline Phosphatase 45 (38-126) U/L Total Creatine Kinase 94 (30-135) U/L Troponin I < 0.012 (0.01-0.034) ng/mL Total Protein 7.8 (6.3-8.2) g/dL Albumin 4.6 (3.5-5.0) g/dL Globulin 3.2 (1.7-4.1) g/dL Albumin/Globulin Ratio 1.4 (1.0-2.8) Lipase 27 (23-300) U/L Urine RBC 0-1/hpf (0-5/HPF) Urine WBC 0-1/hpf (0-5/HPF) Ur Squamous Epith Cells 5-10 /hpf H (0-5/HPF) Urine Bacteria Many (>30) H (None) Ur Culture Indicated? Cult not indicated Vol Urine Centrifuged 10ml (spun) Urine Dip Bedside Urine Glucose Negative Bedside Urine Bilirubin - Negative Bedside Urine Ketone +/- 5 Urine Specific [place] 1.015 Bedside Urine Occult Blood +/- Bedside Urine pH 7.0 Bedside Urine Protein - Negative Bedside Urine Urobilinogen - Negative Bedside Urine Nitrite - Negative Bedside Urine Leukocytes - Negative Esterase Imaging Data Chest x-ray: Radiologist's Impression: PROCEDURE: XR CHEST 1V INDICATIONS: chest pain TECHNIQUE: One view of the chest was acquired. COMPARISON: [facility], CT, CT ANGIO HEAD AND NECK, 09/02/2023, 17:47. [facility], CT, CT HEAD/BRAIN WO CON, 09/02/2023, 17:26. [facility], CR, CHEST 1 VIEW, 12/23/2014, 10:22. FINDINGS: Surgical changes and devices: None. Lungs and pleura: An incomplete inspiratory result is noted, causing a crowded appearance to the lung markings. No focal infiltrates are seen. No pneumothorax or significant pleural effusions are seen. Mediastinum: The cardiac contours are within normal limits. The aorta demonstrates calcification and tortuosity. Bones and chest wall: No suspicious bony lesions. Age-appropriate bony degenerative changes are seen. Overlying soft tissues appear unremarkable. IMPRESSION: Low lung volumes, without an acute abnormality seen by plain film. CT scan - head: Radiologist's Impression: PROCEDURE: CT HEAD/BRAIN WO CON INDICATIONS: headache, nausea/vomiting, dizzy TECHNIQUE: Noncontrast 4.5 mm thick angled axial sections acquired from the foramen magnum to the vertex, with coronal and sagittal reformats. For radiation dose reduction, the following was used: automated exposure control, adjustment of mA and/or kV according to patient size. COMPARISON: [facility], CT, CT ANGIO HEAD AND NECK, 09/02/2023, 17:47. [facility], CR, XR CHEST 1V, 09/02/2023, 17:23. [facility], CT, HEAD WITHOUT CONTRAST, 12/23/2014, 10:31. FINDINGS: Image quality: Diagnostic. CSF spaces: Basal cisterns are patent. No extra-axial fluid collections. The ventricles are symmetric in size and shape. Brain: No intracranial bleeds or masses. There is cerebral volume loss for age, with resultant ventricular and sulcal prominence. There are periventricular and deep white matter chronic small vessel ischemic changes. There is intracranial internal carotid artery atherosclerosis. Skull and face: Calvarium and visualized facial bones appear intact, without suspicious lesions. Sinuses: Visualized sinuses and mastoids are clear. IMPRESSION: Noncontrast head CT within normal limits for age, similar to the 2015 prior. CTA - brain/neck: Radiologist's Impression: PROCEDURE: CT ANGIO HEAD AND NECK INDICATIONS: [place]/N/V dizzy TECHNIQUE: After the administration of intravenous contrast, 1 mm thick sections acquired from the aortic arch through the [place]. 3-dimensional nmzypvt-iqoqqrkph-zdahpawvdq (MIP) and/or volume rendering reformats were acquired of the central intracranial vasculature and neck separately. For radiation dose reduction, the following was used: automated exposure control, adjustment of mA and/or kV according to patient size. COMPARISON: [facility], CR, XR CHEST 1V, 09/02/2023, 17:23. [facility], CT, CT HEAD/BRAIN WO CON, 09/02/2023, 17:26. FINDINGS: Image quality: There is streak artifact seen through the level of the shoulders. BRAIN: CSF spaces: Ventricles are normal in size and shape. Basal cisterns are patent. No extra-axial fluid collections. Brain: No significant abnormality of the brain can be seen. Skull and face: Calvarium and facial bones appear intact, without suspicious lesions. Orbits appear normal. Sinuses: Sinuses and mastoids are clear. HEAD CT ANGIOGRAPHY: Anterior circulation: Intracranial internal carotid arteries are normal in size and flow. The flow within the paired anterior cerebral arteries is normal and symmetric. The flow within the middle cerebral arteries is normal and symmetric. The anterior communicating artery is seen. No aneurysms are seen. Posterior circulation: Visualized portions of the vertebral arteries demonstrate normal caliber, and join to form a normal appearing basilar artery. Flow within the posterior cerebral arteries is normal and symmetric. No aneurysms are seen. NECK CT ANGIOGRAPHY: Carotid system: The great vessels demonstrate a conventional anatomy as they arise from the aortic arch. The origins of the common carotid arteries appear patent. The common carotid arteries demonstrate normal caliber and courses. The bifurcation regions are both widely patent. The internal carotid arteries demonstrate normal calibers and courses. Posterior circulation: The origins of the vertebral arteries both appear widely patent. The more superior extracranial portions of both vertebral arteries also demonstrate normal courses and calibers. The left vertebral artery is dominant to the right. Soft tissues: Visualized neck soft tissues demonstrate no suspicious abnormalities. Bones: No suspicious bony lesions. Visualized cervical spine appears normally aligned. Focal degenerative change can be seen at the C5-C6 level. IMPRESSION: No significant intracranial arterial abnormality is seen. No significant abnormality is seen within the arteries of the neck. Additional findings: Focal C5-C6 degenerative change ECG Data Attestation: I personally reviewed and interpreted this ECG as follows: Interpretation: Sinus rhythm Ventricular rate is 65 Normal axis Normal QRS Normal QTC No ST T wave changes MDM Narrative Medical decision making narrative: Upon my evaluation she reports a vast improvement of symptoms. We discussed vertigo. Head CT and CTA are unremarkable. I have low suspicion that this is CVA. Higher suspicion that this is peripheral vertigo. Most likely BPPV given the positional nature of it. I did not specifically have a chance to do a Mary Kay-Hallpike maneuver because her symptoms were almost gone by the time I evaluated her. Given the fact that the symptoms woke her from sleep, how acutely they started I do suspect peripheral. Will discharge home with a prescription for meclizine and Zofran got help his symptoms. We discussed strict return precautions. Will have her follow-up with her primary doctor. She expressed understanding and agreement with plan. Discharge Plan Departure Patient Disposition: Home Clinical Impression: Vertigo Instructions: Vertigo Activity Restrictions/Additional Instructions: Continue to take all of your medications as directed. Use the meclizine and the ondansetron/Zofran as needed and as directed. Also recommend that you look up the [place] maneuver and tried to perform this. It is most likely going to be helpful with the symptoms that you were having. Contact your primary care doctor for a follow-up. Return to the emergency department for new or worsening symptoms. Prescriptions: New ondansetron 4 mg tablet,disintegrating 4 mg PO Q6H PRN (Reason: nausea and vomiting) Qty: 10 0RF meclizine 25 mg tablet 25 mg PO BID PRN (Reason: dizziness) Qty: 14 0RF No Action gabapentin 300 mg capsule 300 mg PO DAILY zolpidem [Ambien] 5 mg tablet 5 mg PO BEDTIME PRN atorvastatin 10 mg tablet 10 mg PO DAILY Patient Comments: 1/2 PO QD meloxicam submicronized 10 mg capsule 50 mg PO DAILY levothyroxine 75 mcg capsule 75 mcg PO DAILY tramadol 100 mg capsule,ER biphase 24 hr 25-75 100 mg PO DAILY gabapentin 100 mg capsule 100 mg PO DAILY Qty: 10 0RF lidocaine 5 % adhesive patch,medicated 1 patch TOP DAILY PRN (Reason: pain) Qty: 15 0RF Rx Instructions: leave on most painful area for up to 12 hrs Referrals: Sonja Richardson PA-C [Primary Care Provider] - Michael Clark MD [Physician] - Stand Alone Forms: Patient Portal/API
[2023-09-02 19:37] VITALS: BP 189/83; PULSE 62; RESP 17; O2SAT 95
== END 2023-09-02 19:40 | disposition home or self-care (01) ==
PROVIDERS: Emergency Medicine; Emergency Provider Emergency Medicine; PCP Student in an Organized Health Care Education/Training Program
DX: R42 Dizziness and giddiness (principal); R51.9 Headache, unspecified; R11.2 Nausea with vomiting, unspecified; R07.9 Chest pain, unspecified
CPT/HCPCS: 70450; 70496; 70498; 71045; 80053; 81003; 81015; 82550; 83690; 83735; 84484; 85025; 85610; 85730; 93005; 96361; 96374; 99284; J3360; Q9967

== ENCOUNTER → 2023-12-18 14:19 | Outpatient (CLI) | payer MEDICARE, SELFPAY ==
[2023-12-18 16:23] LABS: Cholesterol 154 mg/dL (140-199); HDL Cholesterol 79 mg/dL (40-60); LDL Cholesterol Calculated 55 mg/dL (<100); Triglycerides 99 mg/dL (35-150)
[2023-12-18 16:53] LABS: TSH w/ Reflex to FT4 0.42 uIU/mL (0.47-4.68)
[2023-12-18 17:35] LABS: Free T4, Direct Thyroxine 1.62 ng/dL (0.78-2.19)
== END ==
PROVIDERS: PCP Internal Medicine; Referring Provider Internal Medicine; Visit Provider Internal Medicine
DX: E03.9 Hypothyroidism, unspecified (principal); E78.2 Mixed hyperlipidemia
CPT/HCPCS: 36415; 80061; 84439; 84443

== ENCOUNTER → 2024-02-13 09:43 | Outpatient (CLI) | payer MEDICARE, SELFPAY ==
--- NOTE | 2024-02-13 09:44 | DI.RAD.S_ITS ---
PROCEDURE: XR DEXA AXIAL SKELETON INDICATIONS: osteopenia COMPARISON: [facility], [facility]GAR, XR DEXA AXIAL SKELETON, 01/24/2022, 12:41. FINDINGS: Lumbar Spine: Bone mineral density 0.799 g/cm2, T score -1.6, no statistically significant change compared to prior. Left Hip: Bone mineral density 0.810 g/cm2, T score -1.1, no statistically significant change compared to prior. Left Femoral Neck: Bone mineral density 0.691 g/cm2, T score -1.4. Right Hip: Bone mineral density 0.818 g/cm2, T score -1.0, no statistically significant change compared to prior. Right Femoral Neck: Bone mineral density 0.662 g/cm2, T score -1.7. Fracture Risk Calculation (when applicable): 10-year fracture risk of a major osteoporotic fracture 14% and of a hip fracture 3.3%. (T score greater or equal to -1.0 to: NORMAL) (T score from -1.1 to -2.4: OSTEOPENIA) (T score less than or equal to -2.5: OSTEOPOROSIS) IMPRESSION: Low bone mineral density (osteopenia) by WHO classification. Follow-up guidelines as follows: Osteoporosis: Consider a repeat DEXA and Vertebral Fracture Assessment (VFA) exam in 2 years or sooner if medically necessary, to reassess this patient's status. Osteopenia: Consider a repeat DEXA in 2-3 years to reassess this patient's status, or if there is a new clinical indication. Normal: Consider a repeat DEXA in 5 years or sooner, or if there is a new clinical indication. All treatment decisions require clinical judgment and consideration of individual patient factors, including patient preferences, comorbidities, previous drug use, risk factors not captured in the FRAX model (e.g., frailty, falls, vitamin D deficiency, increased bone turnover, interval significant decline in bone density ) and possible under- or over-estimation of fracture risk by FRAX. In addition, the NOF Guide recommends that FDA-approved medical therapies be considered in postmenopausal women and men age >= 50 years with a: * Hip or vertebral (clinical or morphometric) fracture * T-score of <=-2.5 at the spine or hip * Ten-year fracture probability by FRAX of >= 3% for hip fracture or >=20% for major osteoporotic fracture. People with diagnosed cases of osteoporosis or at high risk for fracture should have regular bone mineral density tests. For patients eligible for Medicare, routine testing is allowed once every 2 years. The testing frequency can be increased to one year for patients who have rapidly progressing disease, those who are receiving or discontinuing medical therapy to restore bone mass, or have additional risk factors. Dictated by: Jt Cleaning M.D. on 02/13/2024 at 18:44 Approved by: Jt Cleaning M.D. on 02/13/2024 at 18:47
== END ==
PROVIDERS: PCP Internal Medicine; Referring Provider Internal Medicine; Visit Provider Internal Medicine
DX: M85.89 Other specified disorders of bone density and structure, multiple sites (principal)
CPT/HCPCS: 77080

== ENCOUNTER → 2024-02-28 12:15 | Outpatient (CLI) | payer MEDICARE, SELFPAY ==
[2024-02-28 13:46] LABS: Appearance Urine UA CLEAR; Bilirubin Urine UA NEGATIVE (NEGATIVE); Color Urine UA YELLOW; Glucose Urine UA NEGATIVE (Negative); Ketones Urine UA NEGATIVE (NEGATIVE); Leukocyte Esterase Urine UA 3+ (NEGATIVE); Nitrite Urine UA NEGATIVE (Negative); Occult Blood Urine UA TRACE-INTACT (Negative); Protein Urine UA NEGATIVE (Negative); Specific Gravity Urine UA <=1.005 (1.000-1.035); Urobilinogen Urine UA 0.2 E.U./dL (0.2)
[2024-02-28 14:03] LABS: Bacteria Urine Moderate (10-30); RBC Urine 0-1/HPF (0-5/HPF); Urine Volume 10mL (spun); WBC Urine 30-100/HPF (0-5/HPF)
[2024-02-28 14:04] LABS: Culture Indicated Urine Specimen Cultured; Renal Epithelial Cells Urine 0-1/HPF (0-1/HPF); Squamous Epithelial Cell Urine 0-1 /HPF (0-5/HPF); Transitional Epi Cells Urine 0-1/HPF (0-5/HPF)
== END ==
PROVIDERS: PCP Internal Medicine; Referring Provider Family Medicine; Visit Provider Family Medicine
DX: R30.0 Dysuria (principal); R39.89 Other symptoms and signs involving the genitourinary system
CPT/HCPCS: 81001; 87077; 87086; 87186

== ENCOUNTER → 2024-04-13 14:30 | Outpatient (CLI) | payer MEDICARE, SELFPAY ==
[2024-04-13 16:20] LABS: Appearance Urine UA CLOUDY; Bilirubin Urine UA NEGATIVE (NEGATIVE); Color Urine UA YELLOW; Glucose Urine UA NEGATIVE (Negative); Ketones Urine UA NEGATIVE (NEGATIVE); Leukocyte Esterase Urine UA 3+ (NEGATIVE); Nitrite Urine UA POSITIVE (Negative); Occult Blood Urine UA TRACE-INTACT (Negative); Protein Urine UA NEGATIVE (Negative); Urobilinogen Urine UA 0.2 E.U./dL (0.2)
[2024-04-13 16:22] LABS: pH Urine UA 6.5 (4.5-8.0)
[2024-04-13 16:57] LABS: Bacteria Urine Many (>30); Culture Indicated Urine Specimen Cultured; RBC Urine 0-1/HPF (0-5/HPF); Squamous Epithelial Cell Urine 1-5 /HPF (0-5/HPF); Urine Volume 10mL (spun); WBC Urine 10-30/HPF (0-5/HPF)
[2024-04-13 17:19] LABS: Follicle Stimulating Hormone 35.9 mIU/mL
[2024-04-13 17:34] LABS: Thyroid Stimulating Hormone 0.665 uIU/mL (0.47-4.68)
[2024-04-13 17:35] LABS: Estradiol, Total 14.3 pg/mL
== END ==
LOC: LAB 14:32
PROVIDERS: PCP Internal Medicine; Referring Provider Physician Assistant; Visit Provider Physician Assistant
DX: R39.9 Unspecified symptoms and signs involving the genitourinary system (principal); Z78.0 Asymptomatic menopausal state
CPT/HCPCS: 36415; 81001; 82670; 83001; 84270; 84402; 84403; 84443; 87077; 87086; 87186

== ENCOUNTER → 2024-07-01 10:17 | Outpatient (CLI) | payer MEDICARE, SELFPAY | PROVIDERS: PCP Internal Medicine; Visit Provider Physician Assistant | DX: N39.0 Urinary tract infection, site not specified (principal); R30.0 Dysuria | CPT/HCPCS: 87077; 87086; 87186 ==

== ENCOUNTER → 2024-07-30 15:26 | Outpatient (CLI) | payer MEDICARE, SELFPAY ==
[2024-07-30 16:16] LABS: Appearance Urine UA SL CLOUDY; Bilirubin Urine UA NEGATIVE (NEGATIVE); Color Urine UA YELLOW; Glucose Urine UA NEGATIVE (Negative); Ketones Urine UA NEGATIVE (NEGATIVE); Nitrite Urine UA POSITIVE (Negative); Occult Blood Urine UA NEGATIVE (Negative); Protein Urine UA NEGATIVE (Negative); Urobilinogen Urine UA 0.2 E.U./dL (0.2)
[2024-07-30 16:17] LABS: Bacteria Urine Many (>30); Culture Indicated Urine Specimen Cultured; Leukocyte Esterase Urine UA 3+ (NEGATIVE); RBC Urine 0-1/HPF (0-5/HPF); Squamous Epithelial Cell Urine 0-1 /HPF (0-5/HPF); Urine Volume 10mL (spun); WBC Urine 30-100/HPF (0-5/HPF); pH Urine UA 6.5 (4.5-8.0)
== END ==
LOC: LAB 15:27
PROVIDERS: PCP Internal Medicine; Referring Provider Physician Assistant; Visit Provider Physician Assistant
DX: R30.0 Dysuria (principal); N39.0 Urinary tract infection, site not specified
CPT/HCPCS: 81001; 87077; 87086; 87186

== ENCOUNTER → 2024-08-05 17:12 | Outpatient (CLI) | payer MEDICARE, SELFPAY ==
[2024-08-05 18:07] LABS: Hematocrit 37.5 % (36-46); Hemoglobin 12.8 g/dL (12.0-16.0); Mean Corpuscular HGB Conc 34.2 % (30-36); Mean Corpuscular Hemoglobin 31.9 PG (26-34); Mean Corpuscular Volume 93.4 fL (80-100); Platelet Count 280 X10^3/uL (150-400); Red Blood Cell Count 4.02 X10^6/uL (4.0-5.2); Red Cell Distribution Width 12.7 % (11.6-14.8); White Blood Cell Count 6.7 X10^3/uL (4.5-11.0)
[2024-08-05 18:24] LABS: BUN Creatinine Ratio 23.5 (6-22); Blood Urea Nitrogen 16 mg/dL (7-17); Calcium 9.8 mg/dL (8.4-10.2); Carbon Dioxide 27 mmol/L (22-32); Chloride 101 mmol/L (98-107); Estimated Glomerular Filt Rate > 60 mL/min (>60); Glucose 97 mg/dL (80-110); HEMOLYSIS < 15 (0-50); Potassium 4.5 mmol/L (3.4-5.1); Sodium 138 mmol/L (137-145)
== END ==
LOC: LAB 17:13
PROVIDERS: PCP Internal Medicine; Referring Provider Internal Medicine; Visit Provider Internal Medicine
DX: N39.0 Urinary tract infection, site not specified (principal)
CPT/HCPCS: 36415; 80048; 85027

== ENCOUNTER → 2024-12-16 12:55 | Outpatient (ROUT) | payer MEDICARE, SELFPAY ==
[2024-12-16 13:00] LABS: Appearance Urine UA CLEAR; Bilirubin Urine UA NEGATIVE (NEGATIVE); Color Urine UA YELLOW; Glucose Urine UA NEGATIVE (Negative); Ketones Urine UA NEGATIVE (NEGATIVE); Leukocyte Esterase Urine UA NEGATIVE (NEGATIVE); Nitrite Urine UA NEGATIVE (Negative); Occult Blood Urine UA NEGATIVE (Negative); Protein Urine UA NEGATIVE (Negative); Specific Gravity Urine UA 1.010 (1.000-1.035); Urobilinogen Urine UA 0.2 E.U./dL (0.2)
[2024-12-16 13:02] LABS: pH Urine UA 5.5 (4.5-8.0)
[2024-12-16 13:09] LABS: Culture Indicated Urine Cult Not Indicated
== END ==
PROVIDERS: PCP Internal Medicine; Visit Provider Obstetrics & Gynecology Gynecology
DX: R32 Unspecified urinary incontinence (principal)
CPT/HCPCS: 81001

== ENCOUNTER → 2024-12-23 10:44 | Outpatient (CLI) | payer MEDICARE, SELFPAY ==
[2024-12-23 11:16] LABS: Blood Urea Nitrogen 14 mg/dL (7-17); Calcium 9.3 mg/dL (8.4-10.2); Carbon Dioxide 29 mmol/L (22-32); Chloride 103 mmol/L (98-107); Cholesterol 167 mg/dL (140-199); Estimated Glomerular Filt Rate > 60 mL/min (>60); Glucose 83 mg/dL (70-99); HDL Cholesterol 78 mg/dL (40-60); HEMOLYSIS < 15 (0-50); Potassium 4.6 mmol/L (3.4-5.1); Sodium 137 mmol/L (137-145); Triglycerides 55 mg/dL (35-150)
[2024-12-23 11:47] LABS: TSH w/ Reflex to FT4 1.17 uIU/mL (0.47-4.68)
== END ==
PROVIDERS: PCP Internal Medicine; Referring Provider Internal Medicine; Visit Provider Internal Medicine
DX: E03.9 Hypothyroidism, unspecified (principal); E78.2 Mixed hyperlipidemia
CPT/HCPCS: 36415; 80048; 80061; 84443; 84450

== ENCOUNTER 2025-01-07 10:00 | Emergency (ER) | payer MEDICARE, SELFPAY ==
[2025-01-07 10:59] VITALS: BP 120/75; PULSE 71; RESP 14; TEMP 36.6; O2SAT 98; BMI 25.0
--- NOTE | 2025-01-07 11:52 | DI.CT.S_ITS ---
PROCEDURE: CT HEAD/BRAIN WO CON INDICATIONS: fall; hit R side of face with lac TECHNIQUE: Noncontrast 4.5 mm thick angled axial sections acquired from the foramen magnum to the vertex, with coronal and sagittal reformats. For radiation dose reduction, the following was used: automated exposure control, adjustment of mA and/or kV according to patient size. COMPARISON: 09/02/2023. FINDINGS: Image quality: Diagnostic. CSF spaces: Basal cisterns are patent. No extra-axial fluid collections. The ventricles are symmetric in size and shape. Brain: No intracranial bleeds or mass effect. There is cerebral volume loss, with resultant ventricular and sulcal prominence. There are periventricular and deep white matter chronic small vessel ischemic changes. There is intracranial internal carotid artery atherosclerosis. Skull and face: Calvarium and visualized facial bones appear intact, without suspicious lesions. Sinuses: Visualized sinuses and mastoids are clear. IMPRESSION: 1. No acute intracranial pathology. 2. Age related volume loss and fbja-gl-szgybtwj white matter chronic small vessel ischemic changes not significantly changed from prior study. Dictated by: Eliceo Clarke M.D. on 01/07/2025 at 12:20 Approved by: Eliceo Clarke M.D. on 01/07/2025 at 12:23
--- NOTE | 2025-01-07 11:52 | DI.CT.S_ITS ---
PROCEDURE: CT CERVICAL SPINE WO CON INDICATIONS: fall hit face TECHNIQUE: Noncontrast 3 mm thick sections acquired from the skull base to the T4 level. Sagittal and coronal reformats were then constructed. For radiation dose reduction, the following was used: automated exposure control, adjustment of mA and/or kV according to patient size. COMPARISON: None. FINDINGS: Image quality: Excellent. Bones: No fractures or dislocations. Straightening and mild reversal of normal cervical lordosis is seen. Degenerative endplate changes are noted at C5-6 and C6-7 levels. Visualized superior ribs are intact. Soft tissues: Prevertebral soft tissues are normal in thickness. No paravertebral hematomas. No apical pneumothoraces. IMPRESSION: 1. No displaced fracture or traumatic subluxation. 2. Mild degenerative disc disease in cervical spine. Dictated by: Eliceo Clarke M.D. on 01/07/2025 at 12:28 Approved by: Elicoe Clarke M.D. on 01/07/2025 at 12:29
--- NOTE | 2025-01-07 11:52 | DI.CT.S_ITS ---
PROCEDURE: CT FACIAL BONES WO CON INDICATIONS: fall; hit r side of face wit lac TECHNIQUE: Noncontrast 2.5 mm thick axial images acquired from the mandible through the frontal sinuses, with coronal and sagittal reformatting. For radiation dose reduction, the following was used: automated exposure control, adjustment of mA and/or kV according to patient size. COMPARISON: None. FINDINGS: Image quality: Excellent. Bones and teeth: Orbital evans are intact. Sinus evans show no fracture or deformity. Nasal bones and septum are intact. Visualized portions of the mandible demonstrate no fractures or subluxation. Zygomatic arches are intact. Pterygoid plates are intact. Visualized portions of the skull base and auditory canals are intact. Sinuses: Paranasal sinuses are aerated, without fluid levels, mucosal thickening, or mucoceles. Mastoid air cells are aerated. Soft tissues: Mild left periorbital and frontal soft tissue swelling is seen. No drainable fluid collection. No enlarged lymph nodes. No soft tissue lacerations or debris. Vascular: Visualized vascular structures appear normal in the absence of contrast. Bony vascular foramina and canals are intact. IMPRESSION: 1. Mild left frontal and periorbital soft tissue swelling. 2. No acute facial bone or nasal bone fracture. Bilateral orbital globes are intact. Bilateral orbital evans are intact. 3. Bilateral paranasal sinuses are well aerated. Dictated by: Eliceo Clarke M.D. on 01/07/2025 at 12:26 Approved by: Eliceo Clarke M.D. on 01/07/2025 at 12:28
--- NOTE | 2025-01-07 11:54 | ED.FALL ---
HPI - Fall <Joycelyn Lr PA-C - Last Filed: 01/07/25 14:44> General Chief Complaint: Fall Stated Complaint: fell-on face bleeding Time Seen by Provider: 01/07/25 11:09 Source: patient Mode of arrival: Ambulatory History of Present Illness HPI Narrative: Ms. Bradford is a very pleasant 79-year-old female with a past medical history of vertigo with the occasional balance issues, BL hearing aid use. Hypothyroidism, osteoporosis, hyperlipidemia who presents to the emergency department for a right-sided facial laceration after fall that occurred this morning. Tdap up-to-date, 02/12/2023. Patient states when she woke up this morning she was having some right side vertigo which is normal for her. 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 She attempted to grab onto a trash can for support however tripped and fell forward hitting the right side of her face on the ground, she now has a small laceration just lateral and below the right eye, she believes this was from her glasses as her glasses did break due to the fall. She was able to get up on her own and at this time denies any pain, she is only concerned about the facial laceration. She denies loss of consciousness, visual disturbance, nausea or vomiting, head pain, neck pain, chest pain, abdominal pain, back pain, lower extremity pain, upper extremity pain, fevers, chills, dysuria, blood thinner use. She is not feeling dizzy. Related Data Home Medications ?Medication ?Instructions ?Recorded ?Confirmed linaclotide 72 mcg capsule 72 mcg PO DAILY 12/18/23 12/23/24 (Linzess) tramadol 100 mg capsule 100 mg PO DAILY PRN 12/23/24 12/23/24 24h,extended release(25-75) zolpidem 5 mg tablet (Ambien) 5 mg PO BEDTIME insomnia 12/23/24 Previous Rx's ?Medication ?Instructions ?Recorded meclizine 25 mg tablet 25 mg PO BID PRN dizziness #14 tabs 09/02/23 levothyroxine 75 mcg tablet 75 mcg PO DAILY #90 tabs 10/06/24 cyclobenzaprine 10 mg tablet 10 mg PO BEDTIME PRN muscle spasm 11/10/24 #60 tabs rosuvastatin 5 mg tablet 5 mg PO DAILY #90 tabs 12/02/24 gabapentin 300 mg capsule 300 mg PO BID #90 caps 12/14/24 estradiol 0.01% (0.1 mg/gram) 1 g vaginal 3XW #42.5 grams 12/16/24 vaginal cream (Estrace) methenamine hippurate 1 gram tablet 1 g PO BID #120 tabs 01/05/25 Allergies Allergy/AdvReac Type Severity Reaction Status Date / Time codeine (CODEINE) Allergy Mild Nausea Verified 01/07/25 10:59 lemborexant (From Dayvigo) AdvReac Intermediate Verified 01/07/25 10:59 Review of Systems <Joycelyn Lr PA-C - Last Filed: 01/07/25 14:44> Review of Systems ROS Unobtainable: All systems reviewed & are unremarkable except as noted in HPI and below Patient History <Joycelyn Lr PA-C - Last Filed: 01/07/25 14:44> Medical History Urge incontinence Incomplete bladder emptying Recurrent UTI GERD (gastroesophageal reflux disease) Slow transit constipation History of colonic polyps History of osteoporosis Osteopenia Acquired hypothyroidism Mixed hyperlipidemia Social History details: (Og), 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 Well-developed active appearing patient, in no acute distress. HEAD: Normocephalic. Proximally 1 cm laceration overlying the right zygomatic arch, with scabbed blood overlying making wound margins difficult to examine prior to cleansing. No tenderness or crepitus of facial bones. After wound cleansing: Patient has 0.5 cm superficial abrasion just lateral to the right eye with surrounding ecchymosis. She has a 2 mm puncture type wound on the right forehead. EYES: PERRL. Extraocular motions intact. No scleral icterus. No injection or drainage. ENT: Hearing aids removed revealing normal pearly mayo TMs bilaterally. Nose without bleeding, purulent drainage. Throat without erythema, tonsillar hypertrophy or exudate. Airway patent. NECK: Trachea midline. Cervical ROM intact. No midline cervical tenderness. CARDIOVASCULAR: Regular rate and rhythm. RESPIRATORY: ?Nonlabored respirations. ?Speaking in clear, full sentences. ?Clear to auscultation. Breath sounds equal bilaterally. No wheezes, rales, or rhonchi. ? GASTROINTESTINAL: Abdomen soft, non-tender, nondistended. Bowel sounds present. EXTREMITIES: No tenderness to palpation of upper or lower extremities. BACK: Nontender without deformity or crepitance. No flank tenderness. No bruising or wounds. NEURO: AOx3. ?Clear speech. ?Moves all 4 extremities appropriately. Normal [id number], heel-stephens, rapid alternating movements. Steady independent gait. Sensation intact to light touch throughout the face and upper and lower extremities. SKIN: Right facial laceration described above. No other wounds. No rashes. Skin is warm and dry. Initial Vital Signs Initial Vital Signs: Vital Signs Temperature 97.8 F 01/07/25 10:59 Pulse Rate 71 01/07/25 10:59 Respiratory Rate 14 01/07/25 10:59 Blood Pressure 120/75 01/07/25 10:59 Pulse Oximetry 98 01/07/25 10:59 Oxygen Delivery Method Room Air 01/07/25 10:59 <Raphael Cano MD - Last Filed: 01/07/25 19:15> Initial Vital Signs Initial Vital Signs: Vital Signs Temperature 97.8 F 01/07/25 10:59 Pulse Rate 71 01/07/25 10:59 Respiratory Rate 14 01/07/25 10:59 Blood Pressure 120/75 01/07/25 10:59 Pulse Oximetry 98 01/07/25 10:59 Oxygen Delivery Method Room Air 01/07/25 10:59 Procedures <Joycelyn Lr PA-C - Last Filed: 01/07/25 14:44> Laceration Repair Laceration 1: Time of procedure: 13:11 Site: face Side (If applicable): right Size (cm): 0.2 Description: linear Depth: simple, single layer Pre-repair: wound explored, irrigated extensively, deep structures intact and cleansed with chlorhexadine Skin layer closed with: dermabond Course <Joycelyn Lr PA-C - Last Filed: 01/07/25 14:44> Orders Ordered: ED Orders 01/07/25 11:52 CT cervical spine wo con Stat CT facial bones wo con Stat CT head/brain wo con Stat Discontinued Medications Bacitracin (Bacitracin Oint 0.9 Gm Pckt) 1 applic TOP NOW ONE Stop: 01/07/25 13:03 Last Admin: 01/07/25 13:35 Dose: 1 applic Documented By: WALKER Vital Signs Vital signs: Vital Signs - 8 hr 01/07/25 14:31 Pulse Rate 59 L Respiratory Rate 19 Blood Pressure 171/80 H Pulse Oximetry 96 Oxygen Delivery Method Room Air <Raphael Cano MD - Last Filed: 01/07/25 19:15> Orders Ordered: ED Orders 01/07/25 11:52 CT cervical spine wo con Stat CT facial bones wo con Stat CT head/brain wo con Stat Discontinued Medications Bacitracin (Bacitracin Oint 0.9 Gm Pckt) 1 applic TOP NOW ONE Stop: 01/07/25 13:03 Last Admin: 01/07/25 13:35 Dose: 1 applic Documented By: WALKER Vital Signs Vital signs: Vital Signs - 8 hr 01/07/25 14:31 Pulse Rate 59 L Respiratory Rate 19 Blood Pressure 171/80 H Pulse Oximetry 96 Oxygen Delivery Method Room Air MDM - Fall <Joycelyn Lr PA-C - Last Filed: 01/07/25 14:44> Medical Records Attestation: I reviewed the patient's medical records. MDM Narrative Medical decision making narrative: 79-year-old female with a past medical history of vertigo with the occasional balance issues, BL hearing aid use. Hypothyroidism, osteoporosis, hyperlipidemia who presents to the emergency department for a right-sided facial laceration after fall that occurred this morning. Tdap up-to-date, 02/12/2023. No loss of consciousness. No blood thinners. Patient describes fall as mechanical, no precipitating symptoms. Differential diagnosis includes but is not limited to facial laceration, facial trauma, closed head injury, concussion, ICH, cervical strain, etc. On exam the patient is in no acute distress, nontoxic-appearing, all vital signs within normal limits, no focal neurologic deficits, steady gait. On physical exam she has a right zygomatic arch facial laceration that is currently obscured by scabbing, saline soaked gauze was placed on the wound and we will proceed with wound cleansing to determine repair method. We will obtain CT head, face, cervical spine given nature of the fall. Patient declines need for pain medication. After wound cleansing, patient has a very small puncture type wound on the right forehead and a superficial abrasion lateral to the eye. Both wounds were cleansed extensively and irrigated, Dermabond was used to close the forehead wound. Bacitracin was applied to the wound closest to the eye. Discussed proper wound care. CT head, cervical spine, face reveal no traumatic injuries other than some soft tissue swelling on the face. Discussed supportive care, rest, ibuprofen/Tylenol, ice, proper wound care, signs symptoms of infection, ED return precautions and follow up with the PCP. Patient verbalized understanding all information and is eagerly requesting discharge home. She is ambulatory and stable for discharge home at this time. Discharge Plan Departure Patient Disposition: Home Clinical Impression: Ground-level fall Facial laceration Qualifiers: Encounter type: initial encounter Qualified Code(s): S01.81XA - Laceration without foreign body of other part of head, initial encounter Instructions: DI for Laceration Repair-Skin Glue Activity Restrictions/Additional Instructions: Dear Ms. Bradford, Thank you for coming to the emergency department. Today you had two small lacerations to your face. Please keep the dressing on your wound clean, dry, and intact for the next 24 hours. After this time, you may remove the dressing and gently clean the wound with soap and water, then pat dry. Keep the wound clean and covered. Avoid soaking the wound in any water such as a bath, pool, or the ocean. Please apply ointment such as Vaseline or bacitracin to the laceration next to right eye daily. If you develop any signs of wound infection such as increased redness, pus drainage, streaking redness, or fevers, please return to the ER immediately for evaluation. Once sutures are removed and the wound has healed, apply sunscreen daily to reduce the appearance of scars. You may use ibuprofen and Tylenol if needed for pain. Please apply ice to your bruised right eye about 4 times a day for 15 minutes to help with swelling. Please follow up with the primary care doctor for further evaluation. Please follow up with your primary care doctor within the next 2-3 days for ER follow-up. (If you do not have a PCP you can call [phone]. ?to schedule an appointment with an [facility] Primary Care Provider) IF YOU DEVELOP ANY NEW OR WORSENING SYMPTOMS, RETURN TO THE ER! Please read the attached instructions, they highlight more specific treatments and interventions for you at home. Thank you for letting me participate in your care, Joycelyn Lr PA-C Prescriptions: No Action levothyroxine 75 mcg tablet 75 mcg PO DAILY Qty: 90 3RF cyclobenzaprine 10 mg tablet 10 mg PO BEDTIME PRN (Reason: muscle spasm) Qty: 60 1RF Rx Instructions: Use nightly as needed for spasms. Do not take this medication within 12 hours of taking Tramadol. rosuvastatin 5 mg tablet 5 mg PO DAILY Qty: 90 3RF gabapentin 300 mg capsule 300 mg PO BID Qty: 90 1RF methenamine hippurate 1 gram tablet 1 g PO BID Qty: 120 5RF Rx Instructions: for UTI prevention tramadol 100 mg capsule,ER biphase 24 hr 25-75 100 mg PO DAILY PRN Linzess 72 mcg capsule 72 mcg PO DAILY zolpidem [Ambien] 5 mg tablet 5 mg PO BEDTIME estradiol [Estrace] 0.01 % (0.1 mg/gram) cream 1 g vaginal 3XW Qty: 42.5 6RF Rx Instructions: apply 1 gm to vagina 3 nights a week. OK to use indefinitely. meclizine 25 mg tablet 25 mg PO BID PRN (Reason: dizziness) Qty: 14 0RF Referrals: Og Love MD [Primary Care Provider, Internal Medicine] Stand Alone Forms: Patient Portal/API ED Sign-out <Raphael Cano MD - Last Filed: 01/07/25 19:15> [facility]: I was immediately available in the department for consultation. ?This documentation has been reviewed and I agree with assessment and plan. Supervised by Raphael Cano MD
[2025-01-07] MEDS: BACITRACIN OINT 0.9 GM PCKT 1 APPLIC TOP (13:35)
[2025-01-07 14:31] VITALS: BP 171/80; PULSE 59; RESP 19; O2SAT 96
== END 2025-01-07 14:32 | disposition home or self-care (01) ==
PROVIDERS: Emergency Provider Physician Assistant; PCP Internal Medicine
DX: S01.81XA Laceration without foreign body of other part of head, initial encounter (principal); W01.10XA Fall on same level from slipping, tripping and stumbling with subsequent striking against unspecified object, initial encounter
CPT/HCPCS: 12011; 70450; 70486; 72125; 99282; 99284

== ENCOUNTER 2025-01-10 07:10 | Emergency (ER) | payer MEDICARE, SELFPAY ==
[2025-01-10 07:27] VITALS: BP 132/75; PULSE 64; RESP 16; TEMP 37.1; O2SAT 98; BMI 25.2
--- NOTE | 2025-01-10 08:20 | DI.CT.S_ITS ---
PROCEDURE: CT HEAD/BRAIN WO CON INDICATIONS: fall/head injury TECHNIQUE: Noncontrast 4.5 mm thick angled axial sections acquired from the foramen magnum to the vertex, with coronal and sagittal reformats. For radiation dose reduction, the following was used: automated exposure control, adjustment of mA and/or kV according to patient size. COMPARISON: [facility], CT, CT HEAD/BRAIN WO CON, 01/07/2025, 11:58. FINDINGS: Image quality: Diagnostic. CSF spaces: Basal cisterns are patent. No extra-axial fluid collections. The ventricles are symmetric in size and shape. Brain: No intracranial bleeds or mass effect. There is cerebral volume loss, with resultant ventricular and sulcal prominence. There are periventricular and deep white matter chronic small vessel ischemic changes. There is intracranial internal carotid artery atherosclerosis. Skull and face: Calvarium and visualized facial bones appear intact, without suspicious lesions. Sinuses: Visualized sinuses and mastoids are clear. IMPRESSION: Approved by: Diana Gottlieb M.D.,Ph.D. on 01/10/2025 at 8:56
--- NOTE | 2025-01-10 08:20 | DI.CT.S_ITS ---
PROCEDURE: CT FACIAL BONES WO CON INDICATIONS: fall/head injury TECHNIQUE: Noncontrast 2.5 mm thick axial images acquired from the mandible through the frontal sinuses, with coronal and sagittal reformatting. For radiation dose reduction, the following was used: automated exposure control, adjustment of mA and/or kV according to patient size. COMPARISON: [facility], CT, CT FACIAL BONES WO CON, 01/07/2025, 11:58. FINDINGS: Image quality: Diagnostic Bones and teeth: Orbital evans are intact. Sinus evans show no fracture or deformity. Nasal bones and septum are intact. Visualized portions of the mandible demonstrate no fractures or subluxation. Zygomatic arches are intact. Pterygoid plates are intact. Visualized portions of the skull base and auditory canals are intact. Sinuses: Paranasal sinuses are aerated, without fluid levels, mucosal thickening, or mucoceles. Mastoid air cells are aerated. Soft tissues: No edema, masses, or fluid collections. No enlarged lymph nodes. No soft tissue lacerations or debris. Vascular: Visualized vascular structures appear normal in the absence of contrast. Bony vascular foramina and canals are intact. IMPRESSION: No acute craniofacial fracture. Approved by: Diana Gottlieb M.D.,Ph.D. on 01/10/2025 at 8:58
--- NOTE | 2025-01-10 10:49 | ED.HEATRA ---
HPI - Head Injury General Chief complaint: Head Injury Stated complaint: Return fm 3days ago: head, ear, law pain Time Seen by Provider: 01/10/25 10:48 Source: patient Mode of arrival: Ambulatory History of Present Illness HPI Narrative: 79-year-old female with a past medical history of vertigo with the occasional balance issues, BL hearing aid use who was seen here in this ED on January 07, 2025 for facial laceration and a ground level fall. Patient started having more pain in her right eye area and so is in for another evaluation today. No other neurological signs today. Related Data Home Medications ?Medication ?Instructions ?Recorded ?Confirmed linaclotide 72 mcg capsule 72 mcg PO DAILY 12/18/23 12/23/24 (Linzess) tramadol 100 mg capsule 100 mg PO DAILY PRN 12/23/24 12/23/24 24h,extended release(25-75) zolpidem 5 mg tablet (Ambien) 5 mg PO BEDTIME insomnia 12/23/24 Previous Rx's ?Medication ?Instructions ?Recorded meclizine 25 mg tablet 25 mg PO BID PRN dizziness #14 tabs 09/02/23 levothyroxine 75 mcg tablet 75 mcg PO DAILY #90 tabs 10/06/24 cyclobenzaprine 10 mg tablet 10 mg PO BEDTIME PRN muscle spasm 11/10/24 #60 tabs rosuvastatin 5 mg tablet 5 mg PO DAILY #90 tabs 12/02/24 gabapentin 300 mg capsule 300 mg PO BID #90 caps 12/14/24 estradiol 0.01% (0.1 mg/gram) 1 g vaginal 3XW #42.5 grams 12/16/24 vaginal cream (Estrace) methenamine hippurate 1 gram tablet 1 g PO BID #120 tabs 01/05/25 Allergies Allergy/AdvReac Type Severity Reaction Status Date / Time codeine (CODEINE) Allergy Mild Nausea Verified 01/10/25 07:27 lemborexant (From Dayvigo) AdvReac Intermediate Verified 01/10/25 07:27 Review of Systems Review of Systems ROS Unobtainable: All systems reviewed & are unremarkable except as noted in HPI and below Patient History Medical History Urge incontinence Incomplete bladder emptying Recurrent UTI GERD (gastroesophageal reflux disease) Slow transit constipation History of colonic polyps History of osteoporosis Osteopenia Acquired hypothyroidism Mixed hyperlipidemia Social History details: (Og), 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, retired education Smoking Status: Former smoker Exam Narrative Exam Narrative: General: Patient appears to be in no acute distress, acting appropriately Head: normocephalic, has some bruising over right eye area, HEENT: Pupils equal round reactive, eyes tracking well, neck supple, no JVD Heart: regular rate and rhythm, no murmurs, rubs, or gallops heard Lungs: clear to auscultation, no adventitious sounds Abdomen: soft , nontender, nondistended, positive bowel sounds Neurological: no focal neurological signs, moving all extremities well, alert and oriented x3, Psych: good judgment ,good insight, mood is normal. Initial Vital Signs Initial Vital Signs: Vital Signs Temperature 98.8 F 01/10/25 07:27 Pulse Rate 64 01/10/25 07:27 Respiratory Rate 16 01/10/25 07:27 Blood Pressure 132/75 01/10/25 07:27 Pulse Oximetry 98 01/10/25 07:27 Oxygen Delivery Method Room Air 01/10/25 07:27 Course Course Course Narrative: 79-year-old female with a recent fall started having more pain over facial area. Evaluation today is normal for anything acute. Patient will be discharged with strict return precautions for her neurological signs. Orders Ordered: ED Orders 01/10/25 08:20 CT facial bones wo con Stat CT head/brain wo con Stat Vital Signs Vital signs: Vital Signs - 8 hr 01/10/25 07:27 Temperature 98.8 F Pulse Rate 64 Respiratory Rate 16 Blood Pressure 132/75 Pulse Oximetry 98 Oxygen Delivery Method Room Air MDM - Head Injury Differential Diagnosis Differential diagnosis: Likely concussion without loss of consciousness, epidural hematoma and closed head injury Imaging Data CT scan - head: Radiologist's Impression: No acute craniofacial fracture. MDM Narrative Medical decision making narrative: 79-year-old female with recent fall complaining of worsening pain around her right eye area. Patient reassured with imaging again. Patient will be discharged with strict return precautions for any neurological signs. Discharge Plan Departure Patient Disposition: Home Clinical Impression: Ground-level fall, Closed head injury Instructions: DI for Closed Head Injury Activity Restrictions/Additional Instructions: can try debrox for ear wax in right ear over the counter, come back if having new neurological signs such as more drowsiness, balance issues, nausea/vomiting, then come right back Prescriptions: No Action levothyroxine 75 mcg tablet 75 mcg PO DAILY Qty: 90 3RF cyclobenzaprine 10 mg tablet 10 mg PO BEDTIME PRN (Reason: muscle spasm) Qty: 60 1RF Rx Instructions: Use nightly as needed for spasms. Do not take this medication within 12 hours of taking Tramadol. rosuvastatin 5 mg tablet 5 mg PO DAILY Qty: 90 3RF gabapentin 300 mg capsule 300 mg PO BID Qty: 90 1RF methenamine hippurate 1 gram tablet 1 g PO BID Qty: 120 5RF Rx Instructions: for UTI prevention tramadol 100 mg capsule,ER biphase 24 hr 25-75 100 mg PO DAILY PRN Linzess 72 mcg capsule 72 mcg PO DAILY zolpidem [Ambien] 5 mg tablet 5 mg PO BEDTIME estradiol [Estrace] 0.01 % (0.1 mg/gram) cream 1 g vaginal 3XW Qty: 42.5 6RF Rx Instructions: apply 1 gm to vagina 3 nights a week. OK to use indefinitely. meclizine 25 mg tablet 25 mg PO BID PRN (Reason: dizziness) Qty: 14 0RF Referrals: Og Love MD [Primary Care Provider, Internal Medicine] Stand Alone Forms: Patient Portal/API
== END 2025-01-10 11:14 | disposition home or self-care (01) ==
PROVIDERS: Emergency Provider Family Medicine; PCP Internal Medicine
DX: S09.90XD Unspecified injury of head, subsequent encounter (principal); W18.30XD Fall on same level, unspecified, subsequent encounter
CPT/HCPCS: 70450; 70486; 99281; 99284

== ENCOUNTER → 2025-01-19 12:21 | Outpatient (CLI) | payer MEDICARE, SELFPAY ==
[2025-01-19 13:09] LABS: Appearance Urine UA CLOUDY; Bilirubin Urine UA NEGATIVE (NEGATIVE); Color Urine UA YELLOW; Glucose Urine UA NEGATIVE (Negative); Ketones Urine UA NEGATIVE (NEGATIVE); Leukocyte Esterase Urine UA 3+ (NEGATIVE); Nitrite Urine UA POSITIVE (Negative); Occult Blood Urine UA 1+ (Negative); Protein Urine UA NEGATIVE (Negative); Specific Gravity Urine UA <=1.005 (1.000-1.035); Urobilinogen Urine UA 0.2 E.U./dL (0.2)
[2025-01-19 13:49] LABS: pH Urine UA 6.0 (4.5-8.0)
[2025-01-19 13:54] LABS: Culture Indicated Urine Specimen Cultured
== END ==
PROVIDERS: PCP Internal Medicine; Referring Provider Internal Medicine; Visit Provider Internal Medicine
DX: N39.0 Urinary tract infection, site not specified (principal)
CPT/HCPCS: 81001; 87077; 87086; 87186